=== PATIENT | female | born 2000 | race Caucasian/White ===

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

== ENCOUNTER → 2019-01-17 | Outpatient (CLI) | payer OTHER, MEDICAID ==
[~2019-01-17] MED LIST changes: +ALLE180T33 PO; +AMIT25TA PO; +CELE20TA PO; +EPIN0.3I11; -EPIN0.3I6; +FEXO180T58; +GABA-843 PO; +MAXA10TA14 PO; -METHACHOLINE KIT (J7674) INH ONE; +PANT40TA3 PO; +RANI-280; +SING10TA32 PO; +SUCR1SUS PO; +SUCR1TAB56; +TOPA100T12 PO; +TRINTAB PO; +ZYRT10CA5 PO; +[UNRECOGNIZED DRUG - CODE] PO
--- NOTE | 2019-01-17 11:25 | REP ---
COMPLETE ABDOMINAL SONOGRAPHY: HISTORY: Left upper quadrant pain. Evaluate for subcutaneous nodules or hernia in the left upper quadrant. Evaluate gallbladder. FINDINGS: Scanning through the right upper quadrant of the abdomen demonstrates a normal sized thin-walled gallbladder without evidence of stone or polyp. Common bile duct is normal measuring 0.4 cm in greatest diameter. There is poor insonation and increased echogenicity in the liver parenchyma consistent with fatty infiltration of the liver. No focal liver lesion is seen. The liver measures 16.5 cm in the mid clavicular craniocaudal span which is the upper range of normal. Limited views of the pancreas show no abnormality. A normal caliber aorta is seen. Scanning of the left upper quadrant demonstrates a somewhat prominent spleen at the upper range of normal in size measuring 12.9 cm in greatest dimension. No focal splenic lesion is seen. Scanning in the left upper quadrant intra-abdominal wall region where the patient relates some tenderness shows no abnormality. No hernia soft tissue mass or cyst is seen. Renal cortical echogenicity pattern is normal and renal contours are smooth bilaterally. The right kidney measures 10.7 x 5.9 x 4.2 cm. Left renal dimensions are 13.4 x 6.8 x 5.2 cm. IMPRESSION: Fatty infiltration of the liver. Borderline liver and spleen size. No other abnormality. Electronically Signed by Nato Whittington MD 01/17/2019 04:00 P
== END ==
LOC: M RAD 08:07
PROVIDERS: ATTEND Internal Medicine Gastroenterology
DX: R10.12 Left upper quadrant pain (principal); K76.0 Fatty (change of) liver, not elsewhere classified

== ENCOUNTER 2019-04-16 20:58 | Emergency (ER) | payer OTHER, MEDICAID ==
[~2019-04-16] VITALS: Ht 167.6 cm; Wt 122.7 kg
[2019-04-16 20:58] VITALS: BP 131/94
== END 2019-04-16 21:40 | disposition left against medical advice (07) ==
LOC: M ED 20:58
DX: Z53.29 Procedure and treatment not carried out because of patient's decision for other reasons (principal)

== ENCOUNTER → 2019-06-22 | Outpatient (REF) | payer OTHER, MEDICAID ==
[2019-06-22 16:04] LABS: FOLLICLE STIMULATING HORMONE 9.5 mIU/mL; LUTEINIZING HORMONE 5.5 mIU/mL; PROLACTIN 7.7 NG/ML
[2019-06-22 16:09] LABS: HCG, SERUM QUALITATIVE NEGATIVE (NEGATIVE)
[2019-06-28 08:06] LABS: 17 HYDROXY PROGESTERONE 27 ng/dL (.); TESTOSTERONE FREE (DIRECT) 0.5 pg/mL (Not Estab.)
== END ==
LOC: M SFHCWAGY 13:30
PROVIDERS: ATTEND Family Medicine
DX: N92.6 Irregular menstruation, unspecified (principal)
CPT/HCPCS: 36415; 83001; 83002; 83498; 84146; 84402; 84403; 84443; 84703; G0463

== ENCOUNTER → 2019-07-09 | Outpatient (CLI) | payer OTHER, MEDICAID ==
[~2019-07-09] MED LIST changes: +SUCR1ORA PO; -SUCR1SUS PO
--- NOTE | 2019-07-10 05:29 | REP ---
Clinical: Pelvic pain and irregular menstrual cycles . Technique: Transabdominal pelvic ultrasound. Findings: Bladder is unremarkable and measures 16.4 x 10.2 x 9.0 cm . Normal anteverted/ right deviated uterus measures 7.8 x 3.2 x 4.7 cm . The endometrial complex measures 3.4 mm thickness. No discrete uterine or endometrial abnormalities are appreciated. Bilateral ovaries are normal in appearance. Right ovary measures 3.4 x 1.7 x 3.1 cm ; Left ovary measures 2.5 x 1.0 x 2.1 cm. No pelvic fluid or adnexal mass lesion . Impression: 1. normal transabdominal pelvic ultrasound.
== END ==
LOC: M WHC 09:04
PROVIDERS: ATTEND Family Medicine
DX: N92.6 Irregular menstruation, unspecified (principal)

== ENCOUNTER → 2019-09-28 | Outpatient (CLI) | payer OTHER, MEDICAID ==
[~2019-09-28] MED LIST changes: -SUCR1ORA PO; +SUCR1SUS PO
[2019-09-28 17:18] LABS: BASO % 0.6 % (0.0-1.0); EOS # 0.2 10^3/uL (0.0-0.5); EOS % 2.4 % (0.0-3.0); HEMATOCRIT 37.8 % (36.0-47.0); HEMOGLOBIN 12.5 g/dl (12.0-15.5); LYMPH # 2.5 10^3/uL (1.5-5.0); LYMPH % 37.8 % (24.0-44.0); MEAN CORPUSCULAR HGB CONC 33.1 g/dl (32.0-36.5); MEAN CORPUSCULAR VOLUME 84.6 fl (80.0-96.0); MONO # 0.3 10^3/uL (0.0-0.8); MONO % 5.2 % (0.0-5.0); NEUTROPHILS # 3.6 10^3/uL (1.5-8.5); NEUTROPHILS % 53.8 % (36.0-66.0); PLATELET COUNT, AUTOMATED 311 10^3/uL (150-450); RED BLOOD COUNT 4.47 10^6/uL (4.00-5.40); WHITE BLOOD COUNT 6.6 10^3/uL (4.0-10.0)
[2019-09-28 17:42] LABS: ALBUMIN 3.8 GM/DL (3.2-5.2); ALT/SGPT 87 U/L (12-78); BILIRUBIN,TOTAL 0.2 MG/DL (0.2-1.0); BLOOD UREA NITROGEN 9 MG/DL (7-18); CALCIUM LEVEL 9.1 MG/DL (8.5-10.1); CARBON DIOXIDE LEVEL 21 MEQ/L (21-32); CHLORIDE LEVEL 110 MEQ/L (98-107); CREATININE FOR GFR 0.89 MG/DL (0.55-1.30); GLUCOSE, FASTING 103 MG/DL (70-100); POTASSIUM SERUM 3.8 MEQ/L (3.5-5.1); RHEUMATOID FACTOR QUANT < 10.0 IU/ML (<15.0); SODIUM LEVEL 141 MEQ/L (136-145); TOTAL PROTEIN 6.9 GM/DL (6.4-8.2)
[2019-09-28 17:51] LABS: FOLATE 6.6 NG/ML; TOTAL 25(OH) VITAMIN D 24.1 NG/ML (30.0-100.0); VITAMIN B12 LEVEL 408 PG/ML
[2019-09-28 18:21] LABS: ERYTHROCYTE SEDIMENTATION RATE 33 mm/hr (0-20)
[2019-10-02 00:06] LABS: ANTINUCLEAR ANTIBODIES DIRECT Negative (Negative); TOPIRAMATE LEVEL 6.3 ug/mL (2.0-25.0)
== END ==
LOC: M LAB 15:57
PROVIDERS: ATTEND Psychiatry & Neurology Neurology
DX: R51 Headache (principal)

== ENCOUNTER → 2019-10-30 | Outpatient (REF) | payer OTHER, MEDICAID | LOC: M LAB REF 15:25 | PROVIDERS: ATTEND Internal Medicine Gastroenterology | DX: R10.12 Left upper quadrant pain (principal); R19.7 Diarrhea, unspecified ==

== ENCOUNTER → 2020-05-19 | Outpatient (CLI) | payer OTHER, MEDICAID ==
[~2020-05-19] MED LIST changes: -MONT10TA2; +MONT10TA4; +PANT40TA29 PO; -PANT40TA3 PO; +SUCR1ORA PO; -SUCR1SUS PO
--- NOTE | 2020-07-11 11:54 | REP ---
ULTRASOUND OF THE LUMBAR SOFT TISSUES: FINDINGS: Real time sonographic evaluation of the lumbar soft tissues is performed with special attention paid to the right side at the site of a palpable lump. There is no sonographic evidence of cystic or solid mass. Further evaluation may be made with MRI. Please note that the study was performed on 05/19/20 and interpretation of the study is delayed due to computer malfunction. SHYAM
== END ==
LOC: M RAD 07:45
PROVIDERS: ATTEND Family Medicine
DX: R22.2 Localized swelling, mass and lump, trunk (principal)

== ENCOUNTER 2020-11-24 20:09 | Emergency (ER) | payer OTHER, MEDICAID ==
[~2020-11-24] VITALS: Ht 165.1 cm; Wt 123.4 kg
[~2020-11-24 20:09] MED LIST changes: -AMIT25TA PO; +AMIT25TA17 PO; +GABA-282 PO; -GABA-843 PO; -MONT10TA4; +MONT5TAB2
--- OUTSIDE RECORDS SUMMARY | 2020-11-24 20:20 | CCD ---
Author Author [facility] Organization [facility] Address Unknown Phone Unavailable Care Team Providers Care Bridge Welder Name Role Phone Fifi Fischer Unavailable PROBLEMS Type Condition ICD9-CM Code QOU82-XY Code Onset Dates Condition S tatus SNOMED Code Notes Problem GERD with esophagitis K21.0 Active 434832245 Problem Fibromyalgia M79.7 Active 601146106 Problem Seasonal allergies J30.2 Active 925805216 Problem Irregular periods N92.6 Active 41718388 Problem Intractable migraine without aura and without st atus migrainosus G43.019 Active 952411426 Problem Morbid (severe) obesity due to excess calories E66 .01 Active 76080598485909 Problem Body mass index (BMI) of 40.0-44.9 in adult Z68.41 Active 276122062 Problem Generalized anxiety disorder F41.1 Active 218 54476 Problem Major depressive disorder, r ecurrent episode, moderate with anxious distress F33.1 Active 286647770 ALLERGIES Allergen (clinical drug ingredient) Drug/Non Drug Allergy do cumented on EMR Reaction Allergy Type Onset Date Status propranolol Propranolol HCl(ND Code:[address]-36) exacerba lucho asthma Drug Allergy Active nortriptyline Nortriptyline HCl(ND Code:[address]-32) tremors Dr yara Allergy Active environmental nasal congestion, itchy eyes Non Drug Allerg y Active ENCOUNTERS from 1999 to 2020-10-15 Encounter Location Date Provider Diagnosis [address] [address] Sep, Fifi Fischer Annual physical exam Z00.00 ; Morbid (se jose) obesity due to excess calories E66.01 ; Body mass index (BMI) of 40.0-44.9 in adult Z68.41 ; Intractable migraine without aura and without status migrainosus G43.019 ; Major depressive disorder, recurrent episode, moderate with anxious distress F33.1 ; Generalized anxiety disorder F41.1 ; Seasonal allergies J30.2 ; Encounter for immunization Z23 ; Fibromyalgia M79.7 ; GERD with esophagitis K21.0 and Irregular periods N92.6 IMMUNIZATIONS Vaccine Route Administration Date Status Influenza (18 yrs & older) Flublok IM Intramuscular Oct 14, 2020 Administered SOCIAL HISTORY Tobacco Use: Social History Observation Description Date Details (start date - stop date) Never Smoker Sex Assigned At : Social History Observation Description Sex Assigned At Unknown Education: Question Answer Notes Level of Education: Not finished High School 11th grade Audit Question Answer Notes Total Score: 0 Interpretation: Alcohol Education Language: Question Answer Notes Languages spoken: Citizen Of [place] Mormon: Question Answer Notes Mormon 33 None Domestic Violence: Question Answer Notes Status: Single Sexual Hx: Question Answer Notes Had sex in the last 12 months (vaginal, oral, or anal)? No LMP: 12/27/2018 Have you ever had an STD? No Drug and Alcohol Question Answer Notes Total Score: 0 Interpretation: No problems reported Alcohol Screening: Question Answer Notes Did you have a drink containing alcohol in the past year? No Points 0 Interpretation Negative BMI Care Goal Follow-Up Question Answer Notes Above Normal BMI Follow-Up Lifestyle education regarding t Tobacco Use: Question Answer Notes Are you a: never smoker never smoker REASON FOR REFERRAL No Information VITAL SIGNS Weight 273 lbs Sep, Height 67 in Sep, BMI 42.75 kg/m2 Sep, Heart Rate 89 /min Sep, Respiratory Rate 18 /min Sep, Temperature 98 degrees Fahrenheit Sep, Oximetry 98 Sep, Blood pressure systolic 120 mm Hg Sep, Blood pressure diastolic 74 mm Hg Sep, MEDICATIONS Medication SIG (Take, Route, Frequency, Duration) Notes Start Da te End Date Status Citalopram Hydrobromide 10 MG 1 tablet Orally Once a day for 30 day(s ) Active Maxalt 5 MG 1 tablet as needed one time Orally Once a day Not-Taking Topamax 100 MG 1 tablet Orally Twice a day Active Singulair 10 MG 1 tablet in the evening Orally Once a day Active Pantoprazole Sodium 40 MG 1 tablet Orally as needed Not-Taking Rizatriptan Benzoate 10 MG 1 tablet Orally Once a day Active ProAir HFA 108 (90 Base) mcg/act 2 puffs as needed Inh alation qid prn for 30 Days Active Vitamin D (Ergocalciferol) 23877 UNIT TAKE ONE CAPSULE BY MOUTH TWICE A MONTH Oral Active Fexofenadine HCl 180 MG TAKE TWO TABLETS BY MOUTH EVERY DAY Oral Active Ibuprofen 800 MG 1 tablet with food or milk as needed Orally as neede d Active PROCEDURES from 1999 to 2020-10-15 Procedure Date Ordered Result Body Site Immunization: Flublok Quadrivalent (18 years & older) 0.5mL IM (Influenza) 2020-10-14 N/A RESULTS No Results REASON FOR VISIT Annual MEDICAL (GENERAL) HISTORY Type Description Date Medical History GERD with esophagitis - Dr. Dina Maher Medical History Migraine without aura - Dr. Benton Medical History Depression and anxiety - [facility] Medical History Fibromyalgia Medical History Seasonal allergies and dermatographia - Dr. Yogesh Emery Medical History Asthma as a child - outgrew this / ?[facility] due to cold Surgical History EGD - Grade C esophagitis, Dr. Gold 07/2018 Surgical History EGD - Grade A esophagitis, Dr. Gold 10/2018 Surgical History Colonoscopy - normal, Dr. Dina Maher 2019 Hospitalization History RSV,pneumonia Goals Section No Information Health Concerns No Information MEDICAL EQUIPMENT No Information MENTAL STATUS No Information FUNCTIONAL STATUS No Information ASSESSMENTS Encounter Date Diagnosis Assessment Notes Treatment Notes Treatm ent Clinical Notes Sep, Annual physical exam (ICD-10 - Z00.00) Medical, surgical, and family histories were reviewed and updated. See preventative section. States she sees a Flag Maker - doesn't remember her name; I encouraged her to call to schedule her first pap. Sep, Morbid (severe) obesity due to excess calories ( ICD-10 - E66.01) The [place] [employer] recommends exercise for overall cardiovascular health. Recommendation is for at least 30 minutes of moderate-intensity aerobic activity at least 5 days per week for a total of 150 minutes, or at least 25 minutes of vigorous aerobic activity at least 3 days per week for a total of 75 minutes; or a combination of moderate- and vigorous-intensity aerobic activity AND moderate- to high-intensity muscle-strengthening activity at least 2 days per week for additional health benefits. Physical activity is anything that makes you move your body and burn calories. This includes things like walking, climbing stairs, or playing sports. Aerobic exercises benefit your heart, and include walking, jogging, swimming or biking. Strength and stretching exercises are best for overall stamina and flexibility. , . I encouraged healthy diet and regular exercise for weight loss. Sep, Body mass index (BMI) of 40.0-44.9 in adult (ICD -10 - Z68.41) Sep, Intractable migraine without aura and without status migrainosus (ICD-10 - G43.019) Follows with Neurology. Sep, Major depressive disorder, r ecurrent episode, moderate with anxious distress (ICD-10 - F33.1) States she is having family problems at home; I encouraged her to re-establish with her therapist. Sep, Generalized anxiety disorder (ICD-10 - F41.1) See above. Sep, Seasonal allergies (ICD-10 - J30.2) Follows with an machine rough rounder; feels her symptoms are well controlled at present. Sep, Encounter for immunization (ICD-10 - Z23) Sep, Fibromyalgia (ICD-10 - M79.7) Symptoms are stable. Sep, GERD with esophagitis (ICD-10 - K21.0) No longer taking PPI; admits to some reflux and LUQ pain. I encouraged her to call her GI doctor (Dr. Dina Maher) to schedule an appointment or a telemedicine visit to discuss these problems. Sep, Irregular periods (ICD-10 - N92.6) States periods are becoming more regular recently PLAN OF TREATMENT Treatment Notes Assessment Notes Clinical Notes Annual physical exam Medical, surgical, and family histories were reviewed and updated. See preventative section.States she sees a Flag Maker - doesn't remember her name; I encouraged her to call to schedule her first pap. Morbid (severe) obesity due to excess calories The [place] [employer] recommends exercise for overall cardiovascular health. Recommendation is for at least 30 minutes of moderate-intensity aerobic activity at least 5 days per week for a total of 150 minutes, or at least 25 minutes of vigorous aerobic activity at least 3 days per week for a total of 75 minutes; or a combination of moderate- and vigorous-intensity aerobic activity AND moderate- to high- intensity muscle-strengthening activity at least 2 days per week for additional health benefits. Physical activity is anything that makes you move your body and burn calories. This includes things like walking, climbing stairs, or playing sports. Aerobic exercises benefit your heart, and include walking, jogging, swimming or biking. Strength and stretching exercises are best for overall stamina and flexibility. , . I encouraged healthy diet and regular ex ercise for weight loss. Intractable migraine without aura and without status migrain osus Follows with Neurology. Major depressive disorder, recurrent episode, moderate with anxious distress States she is having family problems at home; I encouraged her to re-establish with her therapist. Generalized anxiety disorder See above. Seasonal allergies Follows with an jensen rgist; feels her symptoms are well controlled at present. Fibromyalgia Symptoms are stable. GERD with esophagitis No longer taking P PI; admits to some reflux and LUQ pain. I encouraged her to call her GI doctor (Dr. Dina Maher) to schedule an appointment or a telemedicine visit to discuss these problems. Irregular periods States periods are b ecoming more regular recently Next Appt Details 1 year; 30 min Reason:Annual Follow Up:1 year; 30 minAnnual Insurance Providers Payer Name Payer Address Payer Phone Insured Name Patient Relati onship to Insured Coverage Start Date Coverage End Date MEDICAID [employer] [address] [facility] [address] A[address] [facility] [address] [facility] [address] DEJAH SANTOYO
--- OUTSIDE RECORDS SUMMARY | 2020-11-24 20:20 | CCD ---
Continuity of Care Document (CCD) Created on: 11/10/2020 Erika Rizzo External Reference #: [id number] : 2000 Sex: Female Author Author Erika BENTON M.D. Organization Unknown Address [address] [place] [address] Phone [phone] Care Team Providers Care Engine Repair Supervisor Name Role Phone Fifi Fischer MD AUTM [phone] Problems Active Problems Provider Date Tension-type headache Mitchel Benton M.D. Onset: 11/06/2014 Migraine without aura Mitchel Benton M.D. Onset: 11/06/2014 Migraine without aura, not refractory Mitchel Benton M.D. On set: 08/06/2015 Chronic tension-type headache Mitchel Benton M.D. Onset: Disorders of initiating and maintaining sleep Stacey Sarabia Onset: 08/06/2015 Refractory migraine without aura Mitchel Benton M.D. Onset: 09/26/2015 Low back pain Mitchel Benton M.D. Onset: 09/26/2015 Idiopathic progressive polyneuropathy Mitchel Benton M.D. On set: 09/26/2015 Spondylolysis Mitchel Benton M.D. Onset: 09/26/2015 Concussion with no loss of consciousness Mitchel Benton M.D. Onset: 09/02/2016 Social History Type Date Description Comments Sex Unknown ETOH Use Denies alcohol use Tobacco Use Start: Unknown Patient has never smoked Recreational Drug Use Never Used Drugs Allergies, Adverse Reactions, Alerts Active Allergies Reaction Severity Comments Date Seasonal 11/06/2014 Nortriptyline tremor 03/01/2017 Propranolol aggravated asthma 03/01/2017 Inactive Allergies NKDA 11/06/2014 Medications Active Medications SIG Qnty Indications Ordering Provide r Date Citalopram Hydrobromide 10mg Table ts take one tablet by mouth once daily at bedtime 90tabs Mitchel Benton M.D. 02/19/2020 Rizatriptan Benzoate 10mg Tablets take 1 tablet by mouth two times a day as needed for migraines maximum daily dose = 2 tablets 9tabs Mitchel Benton M.D. 08/17/2019 Ibuprofen 800mg Tablets 1 by mouth twice a day as needed for headaches 30tabs Mitchel Benton M.D. Vitamin D (Ergocalciferol) 58730Rivn Capsules Take One Capsule By Mouth Twice A Month 6caps Irwin Benton M.D. 03/05/2019 Topiramate 100mg Tablets take 1 tablet by mouth twice a day maximum daily dose = 2 180tabs Mitchel Benton M.D. 09/02/2016 Immunizations Description No Information Available Vital Signs Date Vital Result Comment 08/06/2015 10:59am BP Systolic 125 mmHg BP Diastolic 70 mmHg Heart Rate 76 /min Respiratory Rate 16 /min 06/06/2015 10:59am BP Systolic 100 mmHg BP Diastolic 70 mmHg Heart Rate 80 /min Respiratory Rate 16 /min Height 65 inches 5'5" Height Percentile 67 % Weight 190.00 lb Weight Percentile >97th BMI (Body Mass Index) 31.6 kg/m2 Results Description No Information Available Procedures Description No Information Available Medical Devices Description No Information Available Encounters Type Date Location Provider Dx Diagnosis Office Visit 11/07/2020 10:15a Main office - [place] Stacey Sarabia G43.009 Migraine w/o aura, not intractable, w/o status migrainosus G44.229 Chronic tension-type headach e, not intractable M54.5 Low back pain M43.06 Spondylolysis, lumbar region Assessments Date Code Description Provider 11/07/2020 G43.009 Migraine without aura, not intra ctable, without status migra Mitchel Benton M.D. 11/07/2020 G44.229 Chronic tension-type headache, n ot intractable Mitchel Benton M.D. 11/07/2020 M54.5 Low back pain Mitchel Benton M.D. 11/07/2020 M43.06 Spondylolysis, lumbar region Yordan Benton M.D. Plan of Treatment No Information Available Functional Status Description No Information Available Mental Status Description No Information Available Referrals Refer to Reason for Referral Status Appt Date Mitchel Benton M.D. Created [facility] [address] [place] [address] [phone]
--- OUTSIDE RECORDS SUMMARY | 2020-11-24 20:20 | CCD ---
Author Author [facility] Organization [facility] Address Unknown Phone Unavailable Care Team Providers Care Hired Help Name Role Phone Fifi Fischer Unavailable PROBLEMS Type Condition ICD9-CM Code [id number] Code Onset Dates Condition S tatus SNOMED Code Notes Problem GERD with esophagitis K21.0 Active 072568407 Problem Morbid (severe) obesity due to excess calories E66 .01 Active 39311049955533 Problem Body mass index (BMI) of 40.0-44.9 in adult Z68.41 Active 373088552 Problem Intractable migraine without aura and without st atus migrainosus G43.019 Active 332456540 Problem Seasonal allergies J30.2 Active 069609206 Problem Anovulation N97.0 Active 94810681 Problem Fibromyalgia M79.7 Active 386019176 Problem Major depressive disorder, r ecurrent episode, moderate with anxious distress F33.1 Active 194759459 Problem Generalized anxiety disorder F41.1 Active 218 74429 Problem Irregular periods N92.6 Active 30332584 Problem DUB (dysfunctional uterine bleeding) N93.8 Act deepak 06745079 ALLERGIES Allergen (clinical drug ingredient) Drug/Non Drug Allergy do cumented on EMR Reaction Allergy Type Onset Date Status propranolol Propranolol HCl(ND Code:[address]-91) exacerba lucho asthma Drug Allergy Active nortriptyline Nortriptyline HCl(NDC Code:[address]-19) tremors Dr yara Allergy Active environmental nasal congestion, itchy eyes Non Drug Allerg y Active ENCOUNTERS from 1999 to 2020-08-25 Encounter Location Date Provider Diagnosis [facility] [place] [address] Aug, Fifi Fischer Intractable migraine without aura and wi thout status migrainosus G43.019 IMMUNIZATIONS No Information SOCIAL HISTORY Tobacco Use: Social History Observation Description Date Details (start date - stop date) Never Smoker Sex Assigned At : Social History Observation Description Sex Assigned At Unknown Education: Question Answer Notes Level of Education: Not finished High School 11th grade Audit Question Answer Notes Total Score: 0 Interpretation: Alcohol Education Language: Question Answer Notes Languages spoken: Vietnamese Sikh: Question Answer Notes Sikh 33 None Domestic Violence: Question Answer Notes [...] REASON FOR REFERRAL No Information VITAL SIGNS No information MEDICATIONS Medication SIG (Take, Route, Frequency, Duration) Start Date En d Date Status ProAir HFA 108 (90 Base) mcg/act 2 puffs as needed Inh alation qid prn for 30 Days Active Maxalt 5 MG 1 tablet as needed one time Orally Once a day Active Vitamin D (Ergocalciferol) 30021 UNIT TAKE ONE CAPSULE BY MOUTH TWICE A MONTH Oral Active Topamax 100 MG 1 tablet Orally Twice a day Active Singulair 10 MG 1 tablet in the evening Orally Once a day Active Pantoprazole Sodium 40 MG 1 tablet Orally as needed Active Ibuprofen 800 MG 1 tablet with food or milk as needed Orally as nee ded Active Fexofenadine HCl 180 MG TAKE TWO TABLETS BY MOUTH EVERY DAY Oral Active PROCEDURES No Information RESULTS No Results REASON FOR VISIT referrals MEDICAL (GENERAL) HISTORY Type Description Date Medical History GERD with esophagitis Medical History Migraine without aura - Dr. Benton Medical History Depression and anxiety - Z[facility] Pinzon [facility] Medical History Fibromyalgia Medical History Seasonal allergies and dermatographia - Dr. Yogesh Emery Medical History Asthma as a child - outgrew this / ?[facility] due to cold Surgical History EGD - Grade C esophagitis, Dr. Gold 07/2018 Surgical History EGD - Grade A esophagitis, Dr. Gold 10/2018 Surgical History Colonoscopy - normal, Dr. Dina Maher 2019 Hospitalization History RSV,pneumonia infant Goals Section No Information Health Concerns No Information MEDICAL EQUIPMENT No Information MENTAL STATUS No Information FUNCTIONAL STATUS No Information ASSESSMENTS Encounter Date Diagnosis Notes Aug, Intractable migraine without aura and without status migrainosus (ICD-10 - G43.019) PLAN OF TREATMENT Next Appt Details Provider Name:Fifi Fischer, 2020-10-14 01:00:00 PM, [address] [place], [address], Insurance Providers Payer Name Payer Address Payer Phone Insured Name Patient Relati onship to Insured Coverage Start Date Coverage End Date MEDICAID [employer] [address] [facility] [address] [address] [facility] [address] [facility] [id number] DEJAH SANTOYO
--- OUTSIDE RECORDS SUMMARY | 2020-11-24 20:20 | CCD | Continuity of Care Document ---
Author Author Erika BENTON M.D. Organization Unknown Address [address] [place] [address] Phone [phone] Care Team Providers Care Scraper Meat Name Role Phone Fifi Fischer MD AUTM [phone] Problems Active Problems Provider Date Tension-type headache [...] 30tabs Mitchel Benton M.D. Vitamin D (Ergocalciferol) 81722Ihew Capsules Take One Capsule By Mouth Twice [...] Office Visit 11/07/2020 10:15a Main office - [place] Stacey Sarabia G43.009 Migraine w/o aura, not [...] Mental Status Description No Information Available Referrals Description No Information Available
--- OUTSIDE RECORDS SUMMARY | 2020-11-24 20:21 | CCD ---
Author Author [facility] Address Unknown Phone Unavailable Care Team Providers Care Supervisor Ship Maintenance Services Name Role Phone [facility] Unavailable Unavailable Mitchel Benton MD Unavailable Unavailable Mitchel Benton MD Unavailable Unavailable Mitchel Benton MD Unavailable Unavailable Mitchel Benton MD Unavailable Unavailable Mitchel Benton MD Unavailable Unavailable Mitchel Benton MD Unavailable Unavailable Mitchel Benton MD Unavailable Unavailable Mitchel Benton MD Unavailable Unavailable Mitchel Benton MD Unavailable Unavailable Mitchel Benton MD Unavailable Unavailable Mitchel Benton MD Unavailable Unavailable Mitchel Benton MD Unavailable Unavailable Mitchel Benton MD Unavailable Unavailable Mitchel Benton MD Unavailable Unavailable Mitchel Benton MD Unavailable Unavailable Mitchel Benton MD Unavailable Unavailable Mitchel Benton MD Unavailable Unavailable Mitchel Benton MD Unavailable Unavailable Mitchel Benton MD Unavailable Unavailable Ali, Mitchel MD Unavailable Unavailable Ali, Mitchel MD Unavailable Unavailable Ali, Mitchel MD Unavailable Unavailable Ali, Mitchel MD Unavailable Unavailable Ali, Mitchel MD Unavailable Unavailable Ali, Mitchel MD Unavailable Unavailable Ali, Mitchel MD Unavailable Unavailable Ali, Mitchel MD Unavailable Unavailable Ali, Mitchel MD Unavailable Unavailable Ali, Mitchel MD Unavailable Unavailable Ali, Mitchel MD Unavailable Unavailable Ali, Mitchel MD Unavailable Unavailable Ali, Mitchel MD Unavailable Unavailable Ali, Mitchel MD Unavailable Unavailable Ali, Mitchel MD Unavailable Unavailable Ali, Mitchel MD Unavailable Unavailable Ali, Mitchel MD Unavailable Unavailable Ali, Mitchel MD Unavailable Unavailable Ali, Mitchel MD Unavailable Unavailable Ali, Mitchel MD Unavailable Unavailable Ali, Mitchel MD Unavailable Unavailable Ali, Mitchel MD Unavailable Unavailable Ali, Mitchel MD Unavailable Unavailable Ali, Mitchel MD Unavailable Unavailable Ali, Mitchel MD Unavailable Unavailable Ali, Mitchel MD Unavailable Unavailable Ali, Mitchel MD Unavailable Unavailable Ali, Mitchel MD Unavailable Unavailable Ali, Mitchel MD Unavailable Unavailable Ali, Mitchel MD Unavailable Unavailable Re-disclosure Warning The records that you are about to access may contain information from federally-assisted alcohol or drug abuse programs. If such information is present, then the following federally mandated warning applies: This information has been disclosed to you from records protected by federal confidentiality rules (42 CFR part 2). The federal rules prohibit you from making any further disclosure of this information unless further disclosure is expressly permitted by the written consent of the person to whom it pertains or as otherwise permitted by 42 CFR part 2. A general authorization for the release of medical or other information is NOT sufficient for this purpose. The Federal rules restrict any use of the information to criminally investigate or prosecute any alcohol or drug abuse patient.The records that you are about to access may contain highly sensitive health information, the redisclosure of which is protected by Article 27-F of the [facility] Public Health law. If you continue you may have access to information: Regarding HIV / AIDS; Provided by facilities licensed or operated by the [facility] Office of Mental Health; or Provided by the [facility] Office for People With Developmental Disabilities. If such information is present, then the following [facility] mandated warning applies: This information has been disclosed to you from confidential records which are protected by state law. State law prohibits you from making any further disclosure of this information without the specific written consent of the person to whom it pertains, or as otherwise permitted by law. Any unauthorized further disclosure in violation of state law may result in a fine or nursing home sentence or both. A general authorization for the release of medical or other information is NOT sufficient authorization for further disc losure. Allergies and Adverse Reactions Type Description Substance Reaction Status Data Source(s ) Drug allergy Nortriptyline HCl Nortriptyline tremors Active eC W1 ([facility]) Drug allergy Propranolol HCl Propranolol exacerbated asthma Active eCW1 ([facility]) environmental environmental environmental nasal congestion, itchy ey es Active eCW1 ([facility]) Family History Family Member Name Family Member Gender Family Member Status Date o f Status Description Data Source(s) Unknown Unknown Problem MEDENT ([facility]) father Encounters Encounter Providers Location Date Indications Data Source(s ) Outpatient Attender: Mitchel Benton MD Main office - [place] 11/07/2020 09:15:00 AM EST MEDENT ([facility]) Outpatient [address] [facility] [address] 10/14/2020 12:00:00 AM EST eCW1 ([facility]) Unknown [address] [facility] [place] [address] 08/24/2020 12:00:00 AM EDT eCW1 ([facility]) Outpatient Attender: [facility] 08/23/2020 12:02:01 AM EDT [facility] Outpatient Attender: [facility] 08/22/2020 10:58:02 AM EDT [facility] Outpatient Attender: [facility] 08/22/2020 10:36:01 AM EDT [facility] Outpatient Attender: [facility] 08/22/2020 10:35:00 AM EDT [facility] Outpatient Attender: [facility] 07/12/2020 07:46:01 AM EDT [facility] Outpatient Attender: [facility] 07/11/2020 12:02:02 AM EDT [facility] Outpatient Attender: [facility] 07/10/2020 04:22:00 PM EDT [facility] Outpatient Attender: [facility] 07/10/2020 04:21:01 PM EDT [facility] Outpatient Attender: [facility] 07/10/2020 04:04:01 PM EDT [facility] Outpatient Attender: [facility] 07/10/2020 03:22:00 PM EDT [facility] Outpatient Attender: [facility] 07/10/2020 02:14:00 PM EDT [facility] Outpatient Attender: [facility] 07/10/2020 02:12:01 PM EDT [facility] [place] [address] [facility] [place] [address] 05/15/2020 12:00:00 AM EDT eCW1 ([facility]) Unknown [address] [facility] [place] [address] 05/12/2020 12:00:00 AM EDT eCW1 ([facility]) Unknown [address] [facility] [place] [address] 05/12/2020 12:00:00 AM EDT eCW1 ([facility]) [facility] [address] [place] [id number] 04/18/2020 12:00:00 AM EDT eCW1 ([facility]) Outpatient Attender: [facility] 04/17/2020 12:02:01 AM EDT [facility] Outpatient Attender: [facility] 04/01/2020 07:25:03 PM EDT [facility] Outpatient Attender: Mitchel Benton MD Main office - [place] 02/19/2020 11:15:00 AM EDT MEDENT ([facility]) [facility] [address] [facility] [place] [address] 10/12/2019 12:00:00 AM EST eCW1 ([facility]) Immunizations Vaccine Date Status Description Data Source(s) influenza, recombinant, quadrIvalent,injectable, prese rvative free 10/14/2020 02:44:00 PM EST completed eCW1 ([facility]) Medications Medication Brand Name Start Date Product Form Dose Route Admi nistrative Instructions Pharmacy Instructions Status Indications Reaction Description Data Source(s) 100 mg 11/08/2020 12:00:00 AM EST tablet 180 TAKE ONE TABLET BY MOUTH TWICE A DAY TAKE ONE TABLET BY MOUTH TWICE A DAY SOLD: 11/16/2020 [facility] 800 mg 11/08/2020 12:00:00 AM EST tablet 30 TAKE ONE TABLET BY MOUTH TWICE A DAY NEEDED FOR HEADACHE TAKE ONE TABLET BY MOUTH TWICE A DAY NEEDED FOR HEADACHE SOLD: 11/16/2020 [facility] 10 mg 11/08/2020 12:00:00 AM EST tablet 9 TAKE ONE TABLET BY MOUTH TWICE A DAY NEEDED FOR MIGRAINES MAXIMUM DAILY DOSE = 2 TABLETS TAKE ONE TABLET BY MOUTH TWICE A DAY NEEDED FOR MIGRAINES MAXIMUM DAILY DOSE = 2 TABLETS SOLD: 11/16/2020 [facility] 10 mg 11/07/2020 12:00:00 AM EST tablet 90 TAKE ONE TABLET BY MOUTH AT BEDTIME TAKE ONE TABLET BY MOUTH AT BEDTIME SOLD: 11/07/2020 [facility] 100 mg 08/16/2020 12:00:00 AM EDT tablet 180 TAKE ONE TABLET BY MOUTH TWICE A DAY TAKE ONE TABLET BY MOUTH TWICE A DAY SOLD: 08/20/2020 [facility] 10 mg 08/16/2020 12:00:00 AM EDT tablet 90 TAKE ONE TABLET BY MOUTH EVERY DAY AT BEDTIME TAKE ONE TABLET BY MOUTH EVERY DAY AT BEDTIME SOLD: 08/20/2020 [facility] montelukast 10 MG Oral Tablet MONTELUKAST SODIUM 06/04/2020 12:0 0:00 AM EDT tablet 30 TAKE ONE TABLET BY MOUTH EVERY D AY TAKE ONE TABLET BY MOUTH EVERY DAY SOLD: 06/07/2020 [facility] montelukast 10 MG Oral Tablet MONTELUKAST SODIUM 06/04/2020 12:0 0:00 AM EDT tablet 30 TAKE ONE TABLET BY MOUTH EVERY D AY TAKE ONE TABLET BY MOUTH EVERY DAY SOLD: 11/16/2020 [facility] montelukast 10 MG Oral Tablet MONTELUKAST SODIUM 06/04/2020 12:0 0:00 AM EDT tablet 30 TAKE ONE TABLET BY MOUTH EVERY D AY TAKE ONE TABLET BY MOUTH EVERY DAY SOLD: 10/18/2020 [facility] montelukast 10 MG Oral Tablet MONTELUKAST SODIUM 06/04/2020 12:0 0:00 AM EDT tablet 30 TAKE ONE TABLET BY MOUTH EVERY D AY TAKE ONE TABLET BY MOUTH EVERY DAY SOLD: 07/11/2020 [facility] montelukast 10 MG Oral Tablet MONTELUKAST SODIUM 06/04/2020 12:0 0:00 AM EDT tablet 30 TAKE ONE TABLET BY MOUTH EVERY D AY TAKE ONE TABLET BY MOUTH EVERY DAY SOLD: 09/17/2020 [facility] montelukast 10 MG Oral Tablet MONTELUKAST SODIUM 06/04/2020 12:0 0:00 AM EDT tablet 30 TAKE ONE TABLET BY MOUTH EVERY D AY TAKE ONE TABLET BY MOUTH EVERY DAY SOLD: 08/14/2020 [facility] 10 mg 02/21/2020 12:00:00 AM EDT tablet 9 TAKE 1 TAB.BY MOUTH TWICE A DAY NEEDED FOR MIGRAINES MAX DAILY DOSE = 2TABS TAKE 1 TAB.BY MOUTH TWICE A DAY NEEDED FOR MIGRAINES MAX DAILY DOSE = 2TABS SOLD: 05/19/2020 [facility] 10 mg 02/21/2020 12:00:00 AM EDT tablet 9 TAKE 1 TAB.BY MOUTH TWICE A DAY NEEDED FOR MIGRAINES MAX DAILY DOSE = 2TABS TAKE 1 TAB.BY MOUTH TWICE A DAY NEEDED FOR MIGRAINES MAX DAILY DOSE = 2TABS SOLD: 02/21/2020 [facility] 10 mg 02/21/2020 12:00:00 AM EDT tablet 9 TAKE 1 TAB.BY MOUTH TWICE A DAY NEEDED FOR MIGRAINES MAX DAILY DOSE = 2TABS TAKE 1 TAB.BY MOUTH TWICE A DAY NEEDED FOR MIGRAINES MAX DAILY DOSE = 2TABS SOLD: 03/31/2020 [facility] 800 mg 02/21/2020 12:00:00 AM EDT tablet 30 TAKE ONE TABLET BY MOUTH TWICE A DAY NEEDED FOR HEADACHES TAKE ONE TABLET BY MOUTH TWICE A DAY NEEDED FOR HEADACHES SOLD: 05/19/2020 [facility] 800 mg 02/21/2020 12:00:00 AM EDT tablet 30 TAKE ONE TABLET BY MOUTH TWICE A DAY NEEDED FOR HEADACHES TAKE ONE TABLET BY MOUTH TWICE A DAY NEEDED FOR HEADACHES SOLD: 02/21/2020 [facility] 10 mg 02/21/2020 12:00:00 AM EDT tablet 9 TAKE 1 TAB.BY MOUTH TWICE A DAY NEEDED FOR MIGRAINES MAX DAILY DOSE = 2TABS TAKE 1 TAB.BY MOUTH TWICE A DAY NEEDED FOR MIGRAINES MAX DAILY DOSE = 2TABS SOLD: 06/30/2020 [facility] 10 mg 02/20/2020 12:00:00 AM EDT tablet 90 TAKE ONE TABLET BY MOUTH ONCE DAILY AT BEDTIME TAKE ONE TABLET BY MOUTH ONCE DAILY AT BEDTIME SOLD: 0 05/19/2020 [facility] 10 mg 02/20/2020 12:00:00 AM EDT tablet 90 TAKE ONE TABLET BY MOUTH ONCE DAILY AT BEDTIME TAKE ONE TABLET BY MOUTH ONCE DAILY AT BEDTIME SOLD: 0 02/21/2020 [facility] Citalopram 10 MG Oral Tablet Citalopram Hydrobromide 02/19/2020 12:00:00 AM EDT ORAL active MEDENT ( [facility]) 100 mg 02/14/2020 12:00:00 AM EDT tablet 180 TAKE 1 TABLET BY MOUTH TWICE A DAY MAXIMUM DAILY DOSE = 2 TAKE 1 TABLET BY MOUTH TWICE A DAY MAXIM UM DAILY DOSE = 2 SOLD: 02/15/2020 [facility] 100 mg 02/14/2020 12:00:00 AM EDT tablet 180 TAKE 1 TABLET BY MOUTH TWICE A DAY MAXIMUM DAILY DOSE = 2 TAKE 1 TABLET BY MOUTH TWICE A DAY MAXIM UM DAILY DOSE = 2 SOLD: 05/19/2020 [facility] montelukast 10 MG Oral Tablet MONTELUKAST SODIUM 11/12/2019 12:0 0:00 AM EST tablet 30 TAKE ONE TABLET BY MOUTH EVERY D AY TAKE ONE TABLET BY MOUTH EVERY DAY SOLD: 01/16/2020 [facility] montelukast 10 MG Oral Tablet MONTELUKAST SODIUM 11/12/2019 12:0 0:00 AM EST tablet 30 TAKE ONE TABLET BY MOUTH EVERY D AY TAKE ONE TABLET BY MOUTH EVERY DAY SOLD: 02/15/2020 [facility] montelukast 10 MG Oral Tablet MONTELUKAST SODIUM 11/12/2019 12:0 0:00 AM EST tablet 30 TAKE ONE TABLET BY MOUTH EVERY D AY TAKE ONE TABLET BY MOUTH EVERY DAY SOLD: 03/18/2020 [facility] montelukast 10 MG Oral Tablet MONTELUKAST SODIUM 11/12/2019 12:0 0:00 AM EST tablet 30 TAKE ONE TABLET BY MOUTH EVERY D AY TAKE ONE TABLET BY MOUTH EVERY DAY SOLD: 12/17/2019 [facility] montelukast 10 MG Oral Tablet MONTELUKAST SODIUM 11/12/2019 12:0 0:00 AM EST tablet 30 TAKE ONE TABLET BY MOUTH EVERY D AY TAKE ONE TABLET BY MOUTH EVERY DAY SOLD: 11/17/2019 [facility] montelukast 10 MG Oral Tablet MONTELUKAST SODIUM 11/12/2019 12:0 0:00 AM EST tablet 30 TAKE ONE TABLET BY MOUTH EVERY D AY TAKE ONE TABLET BY MOUTH EVERY DAY SOLD: 05/09/2020 [facility] 100 mg 11/12/2019 12:00:00 AM EST tablet 180 TAKE ONE TABLET BY MOUTH TWICE A DAY MAXIMUM DAILY DOSE = 2 TAKE ONE TABLET BY MOUTH TWICE A DAY MAX IMUM DAILY DOSE = 2 SOLD: 11/17/2019 [facility] 90 mcg/actuation 10/12/2019 12:00:00 AM EST HFA aerosol inha ler 8 INHALE 2 PUFFS BY MOUTH FOUR TIMES A DAY NEEDED INHALE 2 PUFFS BY MOUTH FOUR TIMES A DAY NEEDED SOLD: 03/31/2020 [facility] 90 mcg/actuation 10/12/2019 12:00:00 AM EST HFA aerosol inha ler 8 INHALE 2 PUFFS BY MOUTH FOUR TIMES A DAY NEEDED INHALE 2 PUFFS BY MOUTH FOUR TIMES A DAY NEEDED SOLD: 10/19/2019 [facility] 0.3 mg/0.3 mL 10/11/2019 12:00:00 AM EST auto-injector 2 INJECT INTO THIGH NEEDED FOR ALLERGIC EMERGENCY INJECT INTO THIGH NEEDED FOR ALLERGIC EMERGENCY SOLD: 10/12/2019 [facility] 10 mg 08/17/2019 12:00:00 AM EDT tablet 9 TAKE 1 TABLET BY MOUTH TWO TIMES A DAY NEEDED FOR MIGRAINES MAXIMUM DAILY DOSE = 2 TABLETS TAKE 1 TABLET BY MOUTH TWO TIMES A DAY NEEDED FOR MIGRAINES MAXIMUM DAILY DOSE = 2 TABLETS SOLD: 09/25/2019 [facility] 10 mg 08/17/2019 12:00:00 AM EDT tablet 9 TAKE 1 TABLET BY MOUTH TWO TIMES A DAY NEEDED FOR MIGRAINES MAXIMUM DAILY DOSE = 2 TABLETS TAKE 1 TABLET BY MOUTH TWO TIMES A DAY NEEDED FOR MIGRAINES MAXIMUM DAILY DOSE = 2 TABLETS SOLD: 11/17/2019 [facility] montelukast 10 MG Oral Tablet MONTELUKAST SODIUM 08/09/2019 12:0 0:00 AM EDT tablet 30 TAKE ONE TABLET BY MOUTH EVERY D AY TAKE ONE TABLET BY MOUTH EVERY DAY SOLD: 10/12/2019 [facility] Insurance Providers Payer name Policy type / Coverage type Policy ID Covered republican ID Covered republican's relationship to arango Policy Arango Plan Information [facility] P [id number] P [id number] Medicaid S [id number] S [id number] HUMANA [facility] O [id number] S [id number] MEDICAID M [id number] [place] [id number] SP [id number] [facility] HUMANA [id number] FA2 [id number] [facility] P [id number] P [id number] Medicaid S [id number] S [id number] [place] HU[place] [id number] FA2 [id number] MEDICAID [id number] Humana [id number] [id number] [facility] [id number] 0 [id number] [facility] P [id number] P [id number] ANSI-Commercial [id number] ANSI-Medicaid [id number] ANSI-Medicaid [id number] ANSI-Commercial [id number] ANSI-Medicaid [id number] ANSI-Commercial [id number] ANSI-Medicaid [id number] ANSI-Commercial [id number] ANSI-Commercial [id number] ANSI-Medicaid [id number] [place] HUMANA [id number] FA2 [id number] MEDICAID [id number] SP [id number] [facility] [id number] FA2 [id number] [place] ([facility]) Commercial [id number] Family Dependent [id number] ANSI-Medicaid [id number] ANSI-Commercial [id number] ANSI-Commercial [id number] ANSI-Medicaid [id number] ANSI-Medicaid [id number] ANSI-Commercial [id number] ANSI-Commercial [id number] ANSI-Medicaid [id number] ANSI-Medicaid [id number] ANSI-Commercial [id number] MEDICAID [id number] SP [id number] [place] (2018) Commercial [id number] Family Dependent [id number] ANSI-Medicaid [id number] ANSI-Commercial [id number] Medicaid [place] Med[place] [id number] Self DC0 [id number] [place] (2018) Health Maintenance Organization (HMO) [id number] Family Dependent [id number] Medicaid Medicaid [id number] Family Dependent DC0 5267P Medicaid Medicaid [id number] Family Dependent DC0 5267P Health Net () Commercial [id number] Family Dependent [id number] [place] (Humana) Commercial [id number] Family Dependent [id number] [place] [id number] Self DC0 [id number] [place] (2018) Health Maintenance Organization (HMO) [id number] Family Dependent [id number] [place] Med[place] [id number] Self DC0 [id number] [place] (2018) Health Maintenance Organization (HMO) [id number] Family Dependent [id number] [place] (2018) Commercial [id number] Family Dependent [id number] [place] Med[place] [id number] Self DC0 [id number] [place] (2018) Health Maintenance Organization (HMO) [id number] Family Dependent [id number] [place] Med[place] [id number] Self DC0 5267P [place] (2018) Health Maintenance Organization (HMO) [id number] Family Dependent [id number] Medicaid Medicaid [id number] Family Dependent DC0 5267P Medicaid Medicaid [id number] Family Dependent DC0 5267P Health Net () Commercial [id number] Family Dependent [id number] [place] (Humana) Commercial [id number] Family Dependent [id number] Medicaid Medicaid [id number] Family Dependent DC0 5267P Medicaid Medicaid [id number] Family Dependent DC0 5267P Health Net () Commercial [id number] Family Dependent [id number] [place] (Humana) Commercial [id number] Family Dependent [id number] Medicaid Medicaid [id number] Family Dependent DC0 5267P Medicaid Medicaid [id number] Family Dependent DC0 5267P Health Net () Commercial [id number] Family Dependent [id number] [place] (Humana) Commercial [id number] Family Dependent [id number] [place] (2018) Commercial [id number] Family Dependent [id number] Medicaid Medicaid [id number] Family Dependent DC0 5267P Medicaid Medicaid [id number] Family Dependent DC0 5267P Health Net () Commercial [id number] Family Dependent [id number] [place] (Hum[employer]) Commercial [id number] Family Dependent [id number] Medicaid Medicaid [id number] Family Dependent DC0 5267P Medicaid Medicaid [id number] Family Dependent DC0 5267P Health Net () Commercial [id number] Family Dependent [id number] [place] (Humana) Commercial [id number] Family Dependent [id number] Medicaid Medicaid [id number] Family Dependent DC0 5267P Medicaid Medicaid [id number] Family Dependent DC0 5267P Health Net () Commercial [id number] Family Dependent [id number] [place] 2017 Commercial [id number] Family Dependent [id number] Medicaid Medicaid [id number] Family Dependent DC0 5267P Medicaid Medicaid [id number] Family Dependent DC0 5267P Health Net () Commercial [id number] Family Dependent [id number] [place] 2017 Commercial [id number] Family Dependent [id number] / Commercial [id number] Family Dependent [id number] [place] [id number] Self [id number] 5267P Health Net Federal Prime Health Maintenance Organization (HMO) [id number] Family Dependent [id number] [facility] [place] [id number] FA2 [id number] [facility] [place] O [id number] C [id number] [place] [id number] Self DC0 5267P Health Net Federal Prime Health Maintenance Organization (HMO) [id number] Family Dependent [id number] / Commercial [id number] Family Dependent [id number] / Commercial [id number] Family Dependent [id number] Medicaid Medicaid [id number] Family Dependent DC0 5267P Medicaid Medicaid [id number] Family Dependent DC0 5267P Health Net () Commercial [id number] Family Dependent [id number] / Commercial [id number] Family Dependent [id number] Medicaid Medicaid [id number] Family Dependent DC0 5267P Health Net () Commercial [id number] Family Dependent [id number] Medicaid Medicaid [id number] Family Dependent DC0 5267P Health Net () Commercial [id number] Family Dependent [id number] Medicaid Medicaid [id number] Family Dependent DC0 5267P Health Net () Commercial [id number] Family Dependent [id number] Medicaid Medicaid [place] Family Dependent [place] Health Net () Commercial Prime Family Depende nt Prime MEDICAID [id number] SP [id number] MEDICAID M [id number] Self [id number] [facility] [id number] Child [id number] [facility] O [id number] P [id number] Problems, Conditions, and Diagnoses Code Display Name Description Problem Type Effective Dates Data Source(s) G43.019 [id number] Intractable migraine without aura and without status migrainosus Problem 10/13/2019 12:00:00 AM EST eCW1 ([facility]) G43.019 [id number] Intractable migraine without aura and without status migrainosus Problem 10/13/2019 12:00:00 AM EST eCW1 ([facility]) Surgeries/Procedures Procedure Description Date Indications Data Source(s) Immunization: Flublok Quadrivalent (18 years & older) 0.5mL IM (Influenza) 10/14/2020 12:00:00 AM EST eCW1 ([facility]) Results ID Date Data Source [id number] 08/22/2020 10:34:05 AM EDT [facility] Current Problems: RASH (ICD-782.1) (ICD1 0-R21)WELL CHILD EXAM (ICD-V20.2) (SSN43-L13.129)FH ANEMIA/BLOOD DISORDER/SICKLE CELL (ICD-V18.2) (ICD10- Z83.2)NEED PROPH VACC&INOCULAT AGNST OTH SPEC DISEASE (ICD-V05.8) (ICD10- Z23)WELL ADOLESCENT EXAM (ICD-V70.0) (MKY20-U39.00)DERMATITIS ECZEMA (ICD-692.9) (YGZ26-D35.9)ALLERGIC RHINITIS (ICD-477.9) (TLD62-Q62.9)ASTHMA (ICD-493.90) (YKE99-T06.909)OBESITY (5TH DIGIT) (ICD-278.00) (POU05-J60.9)Problem list reviewed during this update.Current Medications: * MAXALLE * CONTROL * EBONI * SINGULAIR * RANITIDINE * TOPAMAX Medication list reviewed during this update.Current Allergies: * SEASONAL AND PET DANDER (Moderate)Allergy list reviewed during this update. Dental Chart: Procedures:Type - CDT Code - Description B - (D2150) Amalgam, 2 surfaces, primary or permanent on Tooth # 5 on Tooth Surface DO (Performed by Dinora Murcia DDS) Chart Alert:Prophy 1 per 6 month periodchild through age 12adult +13next avail 07/23/13Exam 1 per 6 month periodnext avail 07/23/13FL2 per 6 month periodthrough age 20next avail 07/23/13BWX 4 films per 6 month periodnext avail 07/23/13Panorex 1 every 3 yearsnext avail 07/25/13Sealants every 5 yearsage 5-15#18, 19, 31 sealed 03/17/11[facility] scaling okProbing not coveredAfter perio maintenance has beenstarted all prophy's need to be billed code #[id number] - 2 times per year Chart Notes:margarita (Aug 22 2020 10:56AM): Pt was 5 minutes late. [facility] (-)per pt. Took temp@ F. Additional PPE requirements due to COVID-19 in the dental setting, N95, surgical mask, hair covering, gown CC: none. HurriCaine (Watermelon) Topical, UR infiltration 1carp. Septocaine (Articaine HCL 4%) X 1:200.000 epi. Operative: #5-DO Gluma and amalgam. Excavated with High Speed. Occlusion checked. No complications. POI. Given. Assisted by AG. Pt was cooperative. NV:Dinora Jackson DDS by margarita (08/22/2020 10:56 AM): Tooth Notes and Watches:- Tooth 13 Watch: mesial and distal Marie Angel RDH by zoe (07/10/2020 2:33 PM): Assessment & Plan Medications:MAXALLEBIRTH CONTROLALLEGRASINGULAIRRANITIDINETOPAMAXAllergies:* SEASONAL AND PET DANDER (Moderate) Name Value Range Interpretation Code Description Data Aneta rce(s) Supporting Document(s) ID Date Data Source [id number] 07/10/2020 02:23:57 PM EDT [facility] Current Problems: RASH (ICD-782.1) (ICD1 0-R21)WELL CHILD EXAM (ICD-V20.2) (ZZF20-I85.129)FH ANEMIA/BLOOD DISORDER/SICKLE CELL (ICD-V18.2) (ICD10- Z83.2)NEED PROPH VACC&INOCULAT AGNST OTH SPEC DISEASE (ICD-V05.8) (ICD10- Z23)WELL ADOLESCENT EXAM (ICD-V70.0) (TWS89-M67.00)DERMATITIS ECZEMA (ICD-692.9) (JDB40-T57.9)ALLERGIC RHINITIS (ICD-477.9) (YMY61-D92.9)ASTHMA (ICD-493.90) (RNA40-U18.909)OBESITY (5TH DIGIT) (ICD-278.00) (ZHF90-Q73.9)Problem list reviewed during this update.Current Medications: * MAXALLE * CONTROL * EBONI * SINGULAIR * RANITIDINE * TOPAMAX Medication list reviewed during this update.Current Allergies: * SEASONAL AND PET DANDER (Moderate)Allergy list reviewed during this update. Dental Chart: Procedures:Type - CDT Code - Description B - (D0120) Periodic oral evaluation - established patient (Performed by Dinora Murcia DDS) B - (D1110) Prophylaxis, adult (Performed by Marie Angel RDH) B - (D0274) Bitewings, 4 radiographic images (Performed by Marie Angel RDH) Treatments:Type - CDT Code - Description T - (D2150) Amalgam, 2 surfaces, primary or permanent on Tooth # 12 on Tooth Surface OD (Performed by Marie Angel RDH) T - (D2150) Amalgam, 2 surfaces, primary or permanent on Tooth # 5 on Tooth Surface DO (Performed by Maire Angel RDH) Existing:Type - CDT Code - Description[E] Decay On #12 Surface DO, #5 Surface DO Chart Alert:Prophy 1 per 6 month periodchild through age 12adult +13next avail 07/23/13Exam 1 per 6 month periodnext avail 07/23/13FL2 per 6 month periodthrough age 20next avail 07/23/13BWX 4 films per 6 month periodnext avail 07/23/13Panorex 1 every 3 yearsnext avail 07/25/13Sealants every 5 yearsage 5-15#18, 19, 31 sealed 03/17/11Debridement not covered under [facility] managed care scaling okProbing not coveredAfter perio maintenance has beenstarted all prophy's need to be billed code #[id number] - 2 times per year Chart Notes:zoe (Jul 10 2020 2:51PM): [facility] with patient- No changes. No problems or concerns today. Adult prophy- handscaled, lao- mint prophy paste, floss, 4 BW'sOH-Patient brushes once/day and NOT flossing regularlyLT gen marginal biofilm and marginal/introproximal calculus on LA. Marginal tissue is slighty inflamed with light bleeding on scaling. She is drinking alot of jiuce and power aid now which is causing her to have more cavities. Talked about water and sugar free options. OHI- Advise to brush 2x a day and floss everyday. Went over brushing along the gum line and flossing properly. Patient is cooperative. NV- 6 month recall/fillingMarie Lawson RDH by zoe (07/10/2020 2:51 PM): ; margarita (Jul 10 2020 3:21PM): [facility](-). CC: none. Reviewed Xrays. Exam: caries detected. OCS: WNL, IO/ EO completed, No significant hard findings upon clinical exam.Additional PPE requirements due to COVID-19 in the dental setting, N95, surgical mask, hair covering, gown and shieldPt was cooperative. OHI given Referral: N/A NV:Marie Somers RDH by margarita (07/10/2020 3:21 PM): Tooth Notes and Watches:- Tooth 13 Watch: mesial and distal Marie Angel RDH by zoe (07/10/2020 2:33 PM): Assessment & Plan Medications:MAXALLEBIRTH CONTROLALLEGRASINGULAIRRANITIDINETOPAMAXAllergies:* SEASONAL AND PET DANDER (Moderate) Name Value Range Interpretation Code Description Data Aneta rce(s) Supporting Document(s) ID Date Data Source [id number] 11/23/2019 09:00:00 AM EST [facility] Name Value Range Interpretation Code Description Data Aneta rce(s) Supporting Document(s) [facility] JZAVNj9fUdIRTqEbQNNtKtiYJOccTIxjZYRwC7A1JXreTq7BPRxdwwNfDYYbPe0+UXCbOJ0kmk9pYYGf gMy 7vXNYqOmuxU8UpRXShf08LASCwVMgLBwFsRoTfFIUyKZDaJZBfGBW7ApNbTeeqAI2oPSB9QSBiMWniCU SdMXAiAPQuHdWkJQ5iXJwzVYmeLm8HLA7oh5DyOZCvFJHxCaeMSPaqEOvxWDIcYHCyHXGqQ898orPzNh 6QzHFwDVv7ZEPoVjL1HCOeSgS7XRBrTk2gBfTee0Cb Z5PaMKi8T5dFFhncZ9QyRTonBJ3rBZK0RTNfEq7XlSejTRutANWNC0krYvAkWIPtPARLKo7+Pj4+DWVu VP9itn31EKKue4ZjEMh8G0I2pWBiK8KyX6XoAMJiyHPDn6tvCqEsGFZ8IALiKwvpGC2CIXTooGIfCIWu LCpwMW4ckfFoxNV0JA3RyJvlINWzUXKAFn8+Pi9QYX TxdzQpMlOuWZNrN74elPEjhQZkZbhoQTXTXD2+UYPhMY2rod93XUKse1DeRGe6U3rfjuc4bFGkKZP1ZF ciSjFhKTZaCB7oUY5SxCH4mSMrHN6NuMCiNP6IiLNzTT5IM5JcGKC6J8HvwRNezxBjF2YwHULlVTHvq8 WoND5WA0QIVZSlPQLpQ2IftK8rD6DvZ5ToH6Nwbqsa GPHFKo4KvNY7jHJoZMHnC8vmcEfwcCWuQGbkL8DxeOAYLDZRe28ma96thxQyDC4+h9JyJGIuXVz93hz1 ZVAcX/qrUYWDGkd7GZepQMOlTlPJbg0zS7zaKyL4WEd8JxppiSU1W0rXyHAR5//gdnx1qij6sb/eD+/z 7SRNli8+b3gv0rGh3fZz5VPYVPhaUWJKmPQNJIMR11 oziPb5SPbelWjrdIyL+UEwYXPKgTHsk4aG4P1Fd9BHtxKnBaA58+Gt6wzy2bqs3sGi2+Lm/RejFY1lr6 ZHQyfGwCDmfEv+lvP/FY32TQfzrLgdcmHDOkVEPcDBD+TxG4VSHLUbZzaADV0tHLjQHcAgv0Swk0B3ZI CPDXiFAAS+QgQiISEi/u31+fwLAPNIgy4F2ZWZU3mU [file] iG+Luis [file] qdKyi2c8d5uvXhghG7xmORBE5ulU/José/EmMMCkN6JY5c4r8QNhJSmQ3PABdanleFbcsyej1QNYjf/61 [file] G/TAMAYO+bHfXtpMKRmWn4M28fka1D0l5nn8v/0ccC11074mhcx2l/WfTmRQeZ/E62aCnx9hxfs3Txemcc5B ZSJth3lrYLIgggIP1CxCDV/fBa9sO/2aOA4mi/28Wx 0jl9NW85zpxG0xsmpoOhZelb/4a3CC7l4p5ft4i15u06qAhbQ2X2BGbo3tI0AhUK7I4h00lSGak9AoX+ E8lShPXGNGtAhfSCyEVF6jZB5e/rDCWNQUlfBKqtynMkxCRbKO9PEF2ty0MtDIAyFYVcq8PtOIx5C1fs vew0qFJyBA5+s1StYDZvNTyvXrJqGgMiSWFiVdpxXB CeVLSxfBxeTT9tNmSGpcsLTEspizGcqDWkDJ3EGI0vz3PnACRcNGNjt6RtRNg0F4QgtJAzjnMzOpojvV WQQSEbJCQcBSEqV8AsOCJ3R8bLHKt1VjgBYjAQMly7CeN8PWHuZfA6MmOXQcQ5QEC0MSrpVwL+IDw2N0 JOEDAPFpYrXVepDUW0AMI4LPIJDkI0VCncPZDPIh8t M9Zdm3UsPYCcFQGyCI2fysMjZNBvEc0HwMgyCFR5O4B7lCTuM2kASGXmNiSsJSH1WGSjEl4urIDfEO1O BsqxR4TmHDByMHSEWKFJMzc+UOXEFJOcYLDcqyHLSE93TUIjUIV6ejIR1VsTO0IyF38hhRcQARBUXa13 ALtvjsStjKRcCM9JEtTgGU2zuc2TVrS4BVJ4nQCgGy7EGAE3YLl0SShjJBBFXh== ID Date Data Source [id number] 09/28/2019 04:29:00 PM EST [facility] ([facility], ) Name Value Range Interpretation Code Description Data Aneta rce(s) Supporting Document(s) Topiramate [Mass/volume] in Serum or Plasma 6.3 ug/mL 2.0-25.0 [facility] ([facility], ) This test was developed and its performa nce characteristics determined by [facility]. It has not been cleared or approved by the Food and Drug Administration. Detection Limit = 1.0 Performed at: [facility] [address] [id number] Logistical Engineer: Dilia Fung MD, Phone: [phone] Performed at: [facility] [address] [id number] Logistical Engineer: Kamran Bryant MD, Phone: [phone] ID Date Data Source [id number] 09/28/2019 04:29:00 PM EST [facility] ([facility], ) Name Value Range Interpretation Code Description Data Aneta rce(s) Supporting Document(s) Antinuclear Antibodies Direct Laboratory test result [facility] ([facility], ) ID Date Data Source [id number] 09/28/2019 04:29:00 PM EST [facility] ([facility], ) Name Value Range Interpretation Code Description Data Aneta rce(s) Supporting Document(s) Calcidiol [Mass/volume] in Serum or Plasma 24.1 ng/mL 30.0-100.0 [facility] ([facility], ) Rheumatoid factor [Units/volume] in Serum or Plasma Laboratory test result [facility] ([facility], ) Erythrocyte sedimentation rate by 2H Westergren method 33 mm/hr 0-2 0 [facility] ([facility], ) ID Date Data Source [id number] 09/28/2019 04:29:00 PM EST [facility] ([facility], ) Name Value Range Interpretation Code Description Data Aneta rce(s) Supporting Document(s) Vitamin B12 Level 408 pg/mL [facility] VITAMIN B12 NORMAL RANGE NORMAL 247 - 911 PG/ML INDETERMINATE 211 - 246 PG/ML DEFICIENT LESS THAN 211 PG/ML Folate 6.6 ng/mL [facility] ([facility]) FOLATE NORMAL RANGE NORMAL GREATER THAN 5.4 NG/ML INDETERMINATE 3.4-5.4 NG/ML DEFICIENT LESS THAN 3.4 NG/ML ID Date Data Source [id number] 09/28/2019 04:29:00 PM EST [facility] ([facility]) Name Value Range Interpretation Code Description Data Aneta rce(s) Supporting Document(s) Blood Urea Nitrogen 9 mg/dL 7-18 [facility] ([facility]) Creatinine For GFR 0.89 mg/dL 0.55-1.30 [facility] ([facility]) Glucose, Fasting 103 mg/dL 70-100 [facility] ([facility]) Potassium Serum 3.8 meq/L 3.5-5.1 [facility] ([facility]) Chloride Level 110 meq/L 98-107 [facility] ([facility]) Sodium Level 141 meq/L 136-145 [facility] ([facility]) Carbon Dioxide Level 21 meq/L 21-32 [facility] ([facility]) Anion Gap 10 meq/L 8-16 [facility] ([facility]) Calcium Level 9.1 mg/dL 8.5-10.1 [facility] ([facility]) Ast/Sgot 35 U/L 7-37 [facility] ([facility]) Alt/SGPT 87 U/L 12-78 [facility] ([facility]) Alkaline Phosphatase 112 U/L 45-117 [facility] ([facility]) Total Protein 6.9 GM/DL 6.4-8.2 [facility] ([facility]) Albumin 3.8 GM/DL 3.2-5.2 [facility] ([facility]) Bilirubin,Total 0.2 mg/dL 0.2-1.0 [facility] ([facility]) Albumin/Globulin Ratio 1.23 1.00-1.93 [facility] ([facility]) ID Date Data Source [id number] 09/28/2019 04:29:00 PM EST [facility] ([facility]) Name Value Range Interpretation Code Description Data Aneta rce(s) Supporting Document(s) White Blood Count 6.6 10 4.0-10.0 [facility] ([facility]) Red Blood Count 4.47 10 4.00-5.40 [facility] ([facility]) Hematocrit 37.8 % 36.0-47.0 [facility] ([facility]) Hemoglobin 12.5 g/dL 12.0-15.5 [facility] ([facility]) Mean Corpuscular Volume 84.6 fl 80.0-96.0 M EDENT ([facility]) Mean Corpuscular Hemoglobin 28.0 pg 27.0-33.0 [facility] ([facility]) Platelet Count, Automated 311 10 150-450 [facility] ([facility]) Red Cell Distribution Width 12.0 % 11.5-14.5 [facility] ([facility]) Mean Corpuscular HGB Conc 33.1 g/dL 32.0-36.5 [facility] ([facility]) [place] % 5.2 % 0.0-5.0 [facility] ([facility]) Lymph % 37.8 % 24.0-44.0 [facility] ([facility]) Neutrophils % 53.8 % 36.0-66.0 [facility] Immature Granulocyte % 0.2 % 0-3.0 [facility] ([facility]) Eos % 2.4 % 0.0-3.0 [facility] ([facility]) Baso % 0.6 % 0.0-1.0 [facility] ([facility]) Nucleated Red Blood Cell % 0.0 % 0-0 MED ENT ([facility]) Neutrophils # 3.6 10 1.5-8.5 [facility] ([facility]) Eos # 0.2 10 0.0-0.5 [facility] ([facility]) Lymph # 2.5 10 1.5-5.0 [facility] ([facility]) Florence # 0.3 10 0.0-0.8 [facility] ([facility]) Baso # 0.0 10 0.0-0.2 [facility] ([facility]) Procedure Social History Code Duration Value Status Description Data Source(s ) Smoking 10/14/2020 12:00:00 AM EST Never Smoker completed Never S moker eCW1 ([facility]) Smoking 06/04/2020 12:00:00 AM EDT Patient has never smoked co mpleted Patient has never smoked [facility] ([facility]) Smoking 05/15/2020 12:00:00 AM EDT Never Smoker completed Never S moker eCW1 ([facility]) Smoking 05/15/2020 12:00:00 AM EDT Never Smoker completed Never S moker eCW1 ([facility]) Smoking 11/29/2019 12:00:00 AM EST Never Smoker completed Never S moker eCW1 ([facility]) Smoking 11/29/2019 12:00:00 AM EST Never Smoker completed Never S moker eCW1 ([facility]) Vital Signs ID Date Data Source UNK Name Value Range Interpretation Code Description Data Source(s) Diastolic blood pressure 74 mm[Hg] 74 mm[Hg] eCW1 ([facility]) Systolic blood pressure 120 mm[Hg] 120 mm[Hg] e CW1 ([facility]) Body temperature 98 [degF] 98 [degF] eCW1 ([facility]) Respiratory rate 18 /min 18 /min eCW1 ([facility]) Heart rate 89 /min 89 /min eCW1 ([facility]) Body mass index (BMI) [Ratio] 42.75 kg/m2 42.75 kg/m2 eCW1 ([facility]) Body height 67 [in_i] 67 [in_i] eCW1 ([facility]) Body weight 273 [lb_av] 273 [lb_av] eCW1 ([facility]) Body mass index (BMI) [Ratio] 42.5 kg/m2 42.5 k g/m2 [facility] ([facility]) Oxygen saturation in Arterial blood by Pulse oximetry 97 % 97 % [facility] ([facility]) Body weight 267.38 [lb_av] 267.38 [lb_av] MEDEN T ([facility]) Body height 66.5 [in_i] 66.5 [in_i] [facility] ([facility]) 5'6.50" Diastolic blood pressure 78 mm[Hg] 78 mm[Hg] [facility] ([facility]) Systolic blood pressure 126 mm[Hg] 126 mm[Hg] M EDENT ([facility]) Heart rate 75 /min 75 /min [facility] Respiratory rate 15 /min 15 /min [facility] ( [facility]) Diastolic blood pressure 72 mm[Hg] 72 mm[Hg] eCW1 ([facility]) Systolic blood pressure 130 mm[Hg] 130 mm[Hg] e CW1 ([facility]) Body temperature 96.7 [degF] 96.7 [degF] eCW1 ( [facility]) Respiratory rate 18 /min 18 /min eCW1 ([facility]) Heart rate 90 /min 90 /min eCW1 ([facility]) Body mass index (BMI) [Ratio] 41.50 kg/m2 41.50 kg/m2 W1 ([facility]) Body height 67 [in_i] 67 [in_i] eCW1 ([facility]) Body weight 265 [lb_av] 265 [lb_av] eCW1 ([facility]) Diastolic blood pressure 70 mm[Hg] 70 mm[Hg] eCW1 ([facility]) Systolic blood pressure 120 mm[Hg] 120 mm[Hg] e CW1 ([facility]) Body temperature 97.6 [degF] 97.6 [degF] eCW1 ( [facility]) Respiratory rate 18 /min 18 /min eCW1 ([facility]) Heart rate 101 /min 101 /min eCW1 ([facility]) Body mass index (BMI) [Ratio] 41.03 kg/m2 41.03 kg/m2 eCW1 ([facility]) Body height 67 [in_us] 67 [in_us] eCW1 ([facility]) Body weight Measured 262 [lb_av] 262 [lb_av] eC W1 ([facility]) Body mass index (BMI) [Ratio] 42.3 kg/m2 42.3 k g/m2 [facility] ([facility]) Oxygen saturation in Arterial blood by Pulse oximetry 98 % 98 % [facility] ([facility]) Body weight 266.00 [lb_av] 266.00 [lb_av] MEDEN T ([facility]) Body height 66.5 [in_i] 66.5 [in_i] [facility] ([facility]) 5'6.50" Diastolic blood pressure 76 mm[Hg] 76 mm[Hg] [facility] ([facility]) Systolic blood pressure 124 mm[Hg] 124 mm[Hg] M EDENT ([facility]) Heart rate 55 /min 55 /min [facility] ([facility] Respiratory rate 18 /min 18 /min [facility] ( [facility])
[2020-11-24] MEDS ORDERED: CITA10TA5 (20:25)
--- OUTSIDE RECORDS SUMMARY | 2020-11-24 21:11 | CCD ---
Author Author [facility] Organization [facility] Address Unknown Phone Unavailable Care Team Providers Care Ophthalmic Medical Technologist Name Role Phone [facility] Unavailable Unavailable Mitchel Benton MD Unavailable Unavailable [...] is protected by Article 27-F of the [facility] Public Health law. If you continue you may have access to information: Regarding HIV / AIDS; Provided by facilities licensed or operated by the [facility] Office of Mental Health; or Provided by the [facility] Office for People With Developmental Disabilities. If such information is present, then the following [facility] mandated warning applies: This information has been [...] law may result in a fine or penitentiary sentence or both. A general authorization for the release of medical or other information is NOT sufficient authorization for further disc losure. Allergies and Adverse Reactions Type Description Substance Reaction Status Data Source(s ) Drug allergy Nortriptyline HCl Nortriptyline tremors Active eC W1 ([facility]) Drug allergy Propranolol HCl Propranolol exacerbated asthma Active eCW1 ([facility]) environmental environmental environmental nasal congestion, itchy ey es Active eCW1 ([facility]) Family History Family Member Name Family Member Gender Family Member Status Date o f Status Description Data Source(s) Unknown Unknown Problem [facility] ([facility]) father Encounters Encounter Providers Location Date Indications Data Source(s ) Outpatient Attender: Mitchel Benton MD Main office - [place] 11/07/2020 09:15:00 AM EST MEDENT ([facility]) Outpatient [address] [facility] [address] 10/14/2020 12:00:00 AM EST eCW1 ([facility]) Unknown [address] [facility] [address] 08/24/2020 12:00:00 AM EDT eCW1 ([facility]) Outpatient Attender: [facility] 08/23/2020 12:02:01 AM EDT [facility] Outpatient Attender: [facility] 08/22/2020 10:58:02 AM EDT [facility] Outpatient Attender: [facility] 08/22/2020 10:36:01 AM EDT [facility] Outpatient Attender: [facility] 08/22/2020 10:35:00 AM EDT [facility] Outpatient Attender: [facility] 07/12/2020 07:46:01 AM EDT [facility] Outpatient Attender: [facility] 07/11/2020 12:02:02 AM EDT [facility] Outpatient Attender: [facility] 07/10/2020 04:22:00 PM EDT [facility] Outpatient Attender: [facility] 07/10/2020 04:21:01 PM EDT [facility] Outpatient Attender: [facility] 07/10/2020 04:04:01 PM EDT [facility] Outpatient Attender: [facility] 07/10/2020 03:22:00 PM EDT [facility] Outpatient Attender: [facility] 07/10/2020 02:14:00 PM EDT [facility] Outpatient Attender: [facility] 07/10/2020 02:12:01 PM EDT [facility] Outpatient [address] [facility] [address] [address] 05/15/2020 12:00:00 AM EDT eCW1 ([facility]) Unknown [address] [facility], [facility] [address] 05/12/2020 12:00:00 AM EDT eCW1 ([facility]) Unknown [address] [facility] [address] 05/12/2020 12:00:00 AM EDT eCW1 ([facility]) [facility] [address] [place] [address] 04/18/2020 12:00:00 AM EDT eCW1 ([facility]) Outpatient Attender: [facility] 04/17/2020 12:02:01 AM EDT [facility] Outpatient Attender: [facility] 04/01/2020 07:25:03 PM EDT [facility] Outpatient Attender: Mitchel Benton MD Main office - [place] 02/19/2020 11:15:00 AM EDT MED[facility] ([facility] [address] [facility] [address] 10/12/2019 12:00:00 AM EST eCW1 ([facility]) Immunizations Vaccine Date Status Description Data Source(s) influenza, recombinant, quadrIvalent,injectable, prese rvative free 10/14/2020 02:44:00 PM EST completed eCW1 ([facility]) Medications Medication Brand Name Start Date Product [...] 12:00:00 AM EDT ORAL active MEDENT ( [facility]) 100 mg 02/14/2020 12:00:00 AM [...] TABLET BY MOUTH EVERY DAY SOLD: 05/09/2020 [facility] 100 mg 11/12/2019 12:00:00 AM [...] TIMES A DAY NEEDED SOLD: 10/19/2019 Katheryn Peña gs 0.3 mg/0.3 mL 10/11/2019 12:00:00 AM EST [...] type / Coverage type Policy ID Covered constitution party ID Covered constitution party's relationship to arango Policy Arango Plan Information EMEDROBERT [id number] SP [id number] [place] HU[place]NA [id number] FA2 [id number] [place] P [id number] P [id number] Medicaid S [id number] S [id number] HU[place]NA [place] [id number] S [id number] MEDICAID M [id number] S [id number] [place] P [id number] P [id number] Medicaid S [id number] S [id number] [place] HU[place]NA [id number] FA2 [id number] MEDICAID [id number] SP [id number] Humana [id number] 3 [id number] [place]ID [place] [id number] DC [id number] [facility] [id number] 0 [id number] [place] P [id number] P [id number] ANSI-Commercial [id number] ANSI-Medicaid [id number] ANSI-Medicaid [id number] ANSI-Commercial [id number] ANSI-Medicaid [id number] ANSI-Commercial [id number] ANSI-Medicaid [id number] ANSI-Commercial [id number] ANSI-Commercial [id number] ANSI-Medicaid [id number] [place] HU[place] [id number] FA2 [id number] MEDICAID [id number] SP [id number] [facility] [id number] FA2 [id number] East ([facility]) Commercial [id number] Family Dependent [id number] ANSI-Medicaid [id number] ANSI-Commercial [id number] ANSI-Commercial [id number] ANSI-Medicaid [id number] ANSI-Medicaid [id number] ANSI-Commercial [id number] ANSI-Commercial [id number] ANSI-Medicaid [id number] ANSI-Medicaid [id number] ANSI-Commercial [id number] MEDICAID [id number] SP [id number] East (2018) Commercial [id number] Family Dependent [id number] ANSI-Medicaid [id number] ANSI-Commercial [id number] Medicaid [place] Medigap Part B [id number] Self DC0 [id number] East (2018) Health Maintenance Organization (HMO) [id number] Family Dependent [id number] Medicaid Medicaid [id number] Family Dependent DC0 5267P Medicaid Medicaid [id number] Family Dependent DC0 5267P Health Net () Commercial [id number] Family Dependent [id number] [place] (Humana) Commercial [id number] Family Dependent [id number] [place] Medig[place] Part [place] [id number] Self DC0 5267P [place] (2018) Health Maintenance Organization (HMO) [id number] Family Dependent [id number] [place] Medig[place] [id number] Self DC0 5267P [place] (2018) Health Maintenance Organization (HMO) [id number] Family Dependent [id number] [place] (2018) Commercial [id number] Family Dependent [id number] [place] Med[place] [id number] Self DC0 5267P [place] (2018) Health Maintenance Organization (HMO) [id number] Family Dependent [id number] [place] Med[place] [id number] Self DC0 5267P [place] (2018) Health Maintenance Organization (HMO) [id number] Family Dependent [id number] Medicaid Medicaid [id number] Family Dependent DC0 5267P Medicaid Medicaid [id number] Family Dependent DC0 5267P Health Net () Commercial [id number] Family Dependent [id number] [place] (Humana) Commercial [id number] Family Dependent [id number] Medicaid Medicaid [id number] Family Dependent DC0 5267P Medicaid Medicaid [id number] Family Dependent DC0 5267P Health Net () Commercial [id number] Family Dependent [id number] [place] (Humana) Commercial [id number] Family Dependent [id number] Medicaid Medicaid [id number] Family Dependent DC0 5267P Medicaid Medicaid [id number] Family Dependent DC0 5267P Health Net () Commercial [id number] Family Dependent [id number] [place] (Humana) Commercial [id number] Family Dependent [id number] East (2018) Commercial [id number] Family Dependent [id number] Medicaid Medicaid [id number] Family Dependent DC0 5267P Medicaid Medicaid [id number] Family Dependent DC0 5267P Health Net () Commercial [id number] Family Dependent [id number] [place] (Humana) Commercial [id number] Family Dependent [id number] Medicaid Medicaid [id number] Family Dependent DC0 5267P Medicaid Medicaid [id number] Family Dependent DC0 5267P Health Net () Commercial [id number] Family Dependent [id number] East (Humana) Commercial [id number] Family Dependent [id number] Medicaid Medicaid [id number] Family Dependent DC0 5267P Medicaid Medicaid [id number] Family Dependent DC0 5267P Health Net () Commercial [id number] Family Dependent [id number] East 2017 Commercial [id number] Family Dependent [id number] Medicaid Medicaid [id number] Family Dependent DC0 5267P Medicaid Medicaid [id number] Family Dependent DC0 5267P Health Net () Commercial [id number] Family Dependent [id number] East 2018 Commercial [id number] Family Dependent [id number] / Commercial [id number] Family Dependent [id number] [place] Medigap Part [place] [id number] Self DC0 5267P Health Net Federal Prime Health Maintenance Organization (HMO) [id number] Family Dependent [id number] [facility] [place] [id number] FA2 [id number] [facility] [place] O [id number] C [id number] [place] [id number] Self DC0 5267P Health Net Federal Prime Health Maintenance Organization (HMO) [id number] Family Dependent [id number] / Commercial [id number] Family Dependent [id number] / Commercial [id number] Family Dependent [id number] Medicaid Medicaid [id number] Family Dependent DC0 5267P Medicaid Medicaid [id number] Family Dependent DC0 5267P Health Net () Commercial [id number] Family Dependent [id number] / Commercial [id number] Family Dependent [id number] Medicaid Medicaid [id number] Family Dependent DC0 5267P Health Net () Commercial [id number] Family Dependent [id number] Medicaid Medicaid [id number] Family Dependent DC0 5267P Health Net () Commercial [id number] Family Dependent [id number] Medicaid Medicaid [id number] Family Dependent DC0 5267P Health Net () Commercial [id number] Family Dependent [id number] [place] Family Dependent [place] Health Net () Commercial Prime Family Depende nt Prime MEDICAID [id number] SP [id number] MEDICAID M [id number] Self [id number] [facility] U [id number] Child [id number] [facility] O [id number] P [id number] Problems, Conditions, and Diagnoses Code Display Name Description Problem Type Effective Dates Data Source(s) G43.019 [id number] Intractable migraine without aura and without status migrainosus Problem 10/13/2019 12:00:00 AM EST eCW1 ([facility]) G43.019 [id number] Intractable migraine without aura and without status migrainosus Problem 10/13/2019 12:00:00 AM EST eCW1 ([facility]) Surgeries/Procedures Procedure Description Date Indications Data Source(s) Immunization: Flublok Quadrivalent (18 years & older) 0.5mL IM (Influenza) 10/14/2020 12:00:00 AM EST eCW1 ([facility]) Results ID Date Data Source [id number] 08/22/2020 10:34:05 AM EDT [facility] Current Problems: RASH (ICD-782.1) (ICD1 0-R21)WELL CHILD EXAM (ICD-V20.2) (JYX08-B82.129)FH ANEMIA/BLOOD DISORDER/SICKLE CELL (ICD-V18.2) (ICD10- Z83.2)NEED PROPH VACC&INOCULAT AGNST OTH SPEC DISEASE (ICD-V05.8) (ICD10- Z23)WELL ADOLESCENT EXAM (ICD-V70.0) (YML85-S00.00)DERMATITIS ECZEMA (ICD-692.9) (RRL37-N22.9)ALLERGIC RHINITIS (ICD-477.9) (VVF56-V59.9)ASTHMA (ICD-493.90) (WDM98-X83.909)OBESITY (5TH DIGIT) (ICD-278.00) (FCY05-B39.9)Problem list reviewed during this update.Current Medications: * [...] 19, 31 sealed 03/17/11Debridement [facility] scaling okProbing not coveredAfter [...] rce(s) Supporting Document(s) ID Date Data Source [id number] 07/10/2020 02:23:57 PM EDT [facility] Current Problems: RASH (ICD-782.1) (ICD1 0-R21)WELL CHILD EXAM (ICD-V20.2) (LJB93-B29.129)FH ANEMIA/BLOOD DISORDER/SICKLE CELL (ICD-V18.2) (ICD10- Z83.2)NEED PROPH VACC&INOCULAT AGNST OTH SPEC DISEASE (ICD-V05.8) (ICD10- Z23)WELL ADOLESCENT EXAM (ICD-V70.0) (DBE94-C02.00)DERMATITIS ECZEMA (ICD-692.9) (HYV74-W01.9)ALLERGIC RHINITIS (ICD-477.9) (AUG96-D57.9)ASTHMA (ICD-493.90) (GUB84-A80.909)OBESITY (5TH DIGIT) (ICD-278.00) (HFK14-N74.9)Problem list reviewed during this update.Current Medications: * [...] 5 on Tooth Surface DO (Performed by Marie Angel RDH) Existing:Type - CDT Code - [...] 19, 31 sealed 03/17/11Debridement not covered under [facility] managed care scaling okProbing not coveredAfter perio maintenance has beenstarted all prophy's need to be billed code #4910 - 2 times per year Chart Notes:zoe (Jul 10 2020 2:51PM): [facility] with patient- No changes. No problems or concerns today. Adult prophy- handscaled, irish- mint prophy paste, floss, 4 BW'sOH-Patient brushes [...] PM): ; margarita (Jul 10 2020 3:21PM): [facility](-). CC: none. Reviewed Xrays. Exam: caries [...] rce(s) Supporting Document(s) ID Date Data Source [id number] 11/23/2019 09:00:00 AM EST [facility] Name Value Range Interpretation Code Description Data Aneta rce(s) Supporting Document(s) Colonoscopy [facility] OKHIZq5nWeANKhBmAAXdSubGZSqsKArnPHLlL4R5EJxaEb6KTVmtsfJlKPGoCf7+JIPwAN5ykn5bMILo gMy 2qBREaWnbbT5OsQCNgv68NNSWfKYiQQdBoEjOgLVWtXOJaBOVrBVJ7KxMbBlasDJ4iLMI3YQRuRAacKL XrNVCgLZMjByFlMJ6xJBhtNHztVc4ZRG9ya7YsIIXcUNYaTuoROKyiAMmtEQVbZNUsDYCeR707nmYlHo 9KfIPfRFv9VVMrDbM5TTYmAxJ2CVPxGa9aEcFix4Pe I0TpFUj7Z5uGBmoxD4XvDUonWS7tVKF1ONOuSy8XmFcsZYhfKVXQH7xsJyDnCJHuMLINIt8+Pj4+DWVu ED0vpg21RLUjs4LjSPy7X5V4cHIrH1FtK4KcECKqkIZKr3ldGwKbJOS5CWZjXgmkFI1VRIKkdUGdEJXk WFboWM5nuqCuqDF2DH4CnRcxTYUeXWCXTy7+Pi9QYX BrvxEzWaKvSHKoA54trTGkoVChPfddUWRLYX3+MYFoHJ3icd80UVCuz4XxUVl5U7gdwgq0rOMbXAV9OC whXuDkOWIqIL1lRX8DfGZ5wEHlBN6UxIPhWW1CvNWaDZ6EI5CkILB5F4KfdRTpjeZeI6ZhNSVfJJXan1 ZyMU3JY8ANEPTjENZcB9LroV0tB0EuK9DjS8Yfdxwi PQPLFj0RfHR6tUNtXJCkL3mqzRhjmZKhKZyeZ1GrrIFYPDZHc33zk36trsWdBA1+m9McCVWcCOy41ty9 ZVAcX/fnRXZVXmp7NGqqJNDzCiKXay3eQ2ejOrH8BPk5HlrclMS1Y0vBpNPQ2//levf0aui8zn/eD+/z 1KNOlr3+j6eh2cPl5wOc6GKLHOinKFQUlNFNKPIY31 rrcLi4ZDusiHthsRiE+ZJqDDGRsNJpe1uO4P3Do6XOwkMaMrF07+Ky8lnq3gld6dAb3+Lm/EttTC5de4 ZHQyfGwCDmfEv+lvP/KV58OExxtNzriuTYUlGBFqIYD+FiR6QAVFGjRfvROI1qLZfDUvHky0Prq8F3ZJ CPDXiFAAS+QgQiISEi/u31+vpQAPPOpm9V4NLVZ9lS [file] iG+Luis [file] ao5bbB7mDC9cwKjzxsBo/rufBob/ivette/2nmxP+269 1dyuaD7JsTNf5NiQI1uc2vbrRZaoXnQorBqyK2mhJH8zKWkrcE3nJCX84y3ThWq72z8/UcIh6VrOaILg MLuULlnJ1QQD9/TBit4uNSaALtlPm+q4B56EFY1kDha5XTu0XH3Wz+Ax0NFjNzY0ymAW4tp+cP8yqxzb prnJPcdxuICpnw9kte4il0YiyC3j5+yagjQBmAWCnY OJfJmuJX7gJIeJ2j7s456UgmeIBdEoTqawH+wrKnfx8gpgOqyIZOB66j0akfaXD6XJ3siNkSTOUH2+sv P0Nxrq5VUIOlxFVYx9K1bMrpXHXorALbfMJeUmYTraWHwAbKA604nEuFWbusFZ3ZqTzyIfMKHFiq7R3k BHGMrHsMZi/n2NiSRXQWd0rv6db4aNe6SLFUPCZn4J vVfKdsh39Fn/DzXUwykFZ5PSqVvHet0nYD5q83BSfD4TpxHW8eKi3IoIm4yNsZcpuhsPitMTL++awOBx WmF18okYS27lc8HXxDW33iKwBbYq1uxkunqNZn8EwOEGoMpwGvbvBFlmZhMl/PWSp6ZO8poyNIBcTYnK DDwCBCj/TJJnSJDjfNrjGerMd3bDqw+J2w2IZynFZ4 IgVikQjzWRDcUo7hni563D+[facility] HOME/rgU3RVaOJknq6ZgVoBk3DQe4o8yL5+ojkoAq0IOzZ1tuXgUyLj5WK [file] ziObw3q9f5oaAnpoT5doZCSP8waJ/José/VkBGKgN3LP5u7x1OBwZJxJ7DXUoxqnxWacvwyj8FBHzf/61 [file] G/TAMAYO+cLfOveDFTbKm2K45okz0U5z0ms4i/1euB40645tvpo2u/WfTmRQeZ/L70pSpg0tnin7Jbqses1T SBIkz5zaXJFfhsMJ2SlNDY/fBa9sO/8eTP1ng/28Wx 3td6QZ24ymhU2nmsgtXdXith/3x3HJ9h4n1cx2b37p62gFbnP0A0SMgs5nZ5DqWG3T1m40xCNvd8XtO+ S6zAwACBZQbFmaEOzYOO0sZV8l/eDPYMPSucKCehmiJjpKDjEL1ZAL1kp6RiBVWjNVFnz1GtSDi3T9hy yee4aEFeDP3+l5PdNYTtYWkbMkOxBhVcIRLsVmnuTA HlHSGgpLjpCF8hOnXVwhuRUCayegWjcKRnTO9XVF3zp9FrFVVmOGGdh8RrBCb4T2EteFSythQkKulfaA GDHDMbIVQiPWSsC2EcXTZ6U4sLEFf9FqxEFsHETyu4RiL5XJRsRaD9ZvFTIjR3TGA3IArjEsH+IDw2N0 SRIXOXJrQgUEubNRJ9OVO0JPOTUlA2ENiuXAJMKj3r A2Dlj4AlEBBxDSAzBC2nnyGpDBOlDa0HeDblADT6B2C1hDTsL0zCNZMxMmDyISI7WZYrZx7kgWKvJC2W XukaZ1EvTSUfVBXGJOGBWjm+LWVXFGBfJMQotlQQLA68IHZkQIS4nnSB4HuXR7XfB32wvFjOHANWKn39 OWgeimYwzJCpAY0JBeEnKF6gcv9CRwT4OUM3rKDdHs8SBZW7BKu0GCgfJTETKw== ID Date Data Source [id number] 09/28/2019 04:29:00 PM EST MEDENT ([facility] ) Name Value Range Interpretation Code Description Data Aneta rce(s) Supporting Document(s) Topiramate [Mass/volume] in Serum or Plasma 6.3 ug/mL 2.0-25.0 MEDENT ([facility] ) This test was developed and its performa nce characteristics determined by [facility]. It has not been cleared or approved by the Food and Drug Administration. Detection Limit = 1.0 Performed at: [facility] [id number] Meat Cooler: Dilia Fung MD, Phone: [phone] Performed at: [facility] [id number] Meat Cooler: Kamran Bryant MD, Phone: [phone] ID Date Data Source [id number] 09/28/2019 04:29:00 PM EST MEDENT ([facility], ) Name Value Range Interpretation Code Description Data Aneta rce(s) Supporting Document(s) Antinuclear Antibodies Direct Laboratory test result MEDENT ([facility], ) ID Date Data Source [id number] 09/28/2019 04:29:00 PM EST [facility] ([facility] ) Name Value Range Interpretation Code Description Data Aneta rce(s) Supporting Document(s) Calcidiol [Mass/volume] in Serum or Plasma 24.1 ng/mL 30.0-100.0 [facility] ([facility] ) Rheumatoid factor [Units/volume] in Serum or Plasma Laboratory test result MED[facility] ([facility] ) Erythrocyte sedimentation rate by 2H Westergren method 33 mm/hr 0-2 0 [facility] ([facility] ) ID Date Data Source [id number] 09/28/2019 04:29:00 PM EST [facility] ([facility] ) Name Value Range Interpretation Code Description Data Aneta rce(s) Supporting Document(s) Vitamin B12 Level 408 pg/mL [facility] ([facility], ) VITAMIN B12 NORMAL RANGE NORMAL 247 - 911 PG/ML INDETERMINATE 211 - 246 PG/ML DEFICIENT LESS THAN 211 PG/ML Folate 6.6 ng/mL MEDENT ([facility]) FOLATE NORMAL RANGE NORMAL GREATER THAN 5.4 NG/ML INDETERMINATE 3.4-5.4 NG/ML DEFICIENT LESS THAN 3.4 NG/ML ID Date Data Source [id number] 09/28/2019 04:29:00 PM EST [facility] ([facility]) Name Value Range Interpretation Code Description Data Aneta rce(s) Supporting Document(s) Blood Urea Nitrogen 9 mg/dL 7-18 [facility] ([facility], ) Creatinine For GFR 0.89 mg/dL 0.55-1.30 [facility] ([facility]) Glucose, Fasting 103 mg/dL 70-100 [facility] ([facility]) Potassium Serum 3.8 meq/L 3.5-5.1 [facility] ([facility]) Chloride Level 110 meq/L 98-107 [facility] ([facility], ) Sodium Level 141 meq/L 136-145 [facility] ([facility]) Carbon Dioxide Level 21 meq/L 21-32 [facility] ([facility]) Anion Gap 10 meq/L 8-16 [facility] ([facility]) Calcium Level 9.1 mg/dL 8.5-10.1 [facility] ([facility]) Ast/Sgot 35 U/L 7-37 [facility] ([facility]) Alt/SGPT 87 U/L 12-78 [facility] ([facility]) Alkaline Phosphatase 112 U/L 45-117 [facility] ([facility]) Total Protein 6.9 GM/DL 6.4-8.2 [facility] ([facility], ) Albumin 3.8 GM/DL 3.2-5.2 [facility] ([facility]) Bilirubin,Total 0.2 mg/dL 0.2-1.0 [facility] ([facility]) Albumin/Globulin Ratio 1.23 1.00-1.93 [facility] ([facility]) ID Date Data Source [id number] 09/28/2019 04:29:00 PM EST [facility] ([facility]) Name Value Range Interpretation Code Description Data Aneta e(s) Supporting Document(s) White Blood Count 6.6 10 4.0-10.0 [facility] ([facility]) Red Blood Count 4.47 10 4.00-5.40 [facility] ([facility]) Hematocrit 37.8 % 36.0-47.0 [facility] ([facility]) Hemoglobin 12.5 g/dL 12.0-15.5 [facility] ([facility]) Mean Corpuscular Volume 84.6 fl 80.0-96.0 M EDENT ([facility]) Mean Corpuscular Hemoglobin 28.0 pg 27.0-33.0 [facility] ([facility]) Platelet Count, Automated 311 10 150-450 [facility] ([facility]) Red Cell Distribution Width 12.0 % 11.5-14.5 [facility] ([facility]) Mean Corpuscular HGB Conc 33.1 g/dL 32.0-36.5 [facility] ([facility]) Wallace % 5.2 % 0.0-5.0 [facility] ([facility]) Lymph % 37.8 % 24.0-44.0 [facility] ([facility]) Neutrophils % 53.8 [facility] 36.0[facility].0 [facility] Immature Granulocyte % 0.2 % 0-3.0 [facility] ([facility]) Eos % 2.4 % 0.0-3.0 [facility] ([facility]) Baso % 0.6 % 0.0-1.0 [facility] ([facility]) Nucleated Red Blood Cell % 0.0 % 0-0 MED ENT ([facility]) Neutrophils # 3.6 10 1.5-8.5 [facility] ([facility]) Eos # 0.2 10 0.0-0.5 [facility] ([facility]) Lymph # 2.5 10 1.5-5.0 [facility] ([facility]) Wallace # 0.3 10 0.0-0.8 [facility] ([facility]) Baso # 0.0 10 0.0-0.2 [facility] ([facility]) Procedure Social History Code Duration Value Status Description Data Source(s ) Smoking 10/14/2020 12:00:00 AM EST Never Smoker completed Never S moker eCW1 ([facility]) Smoking 06/04/2020 12:00:00 AM EDT Patient has never smoked co mpleted Patient has never smoked [facility] ([facility]) Smoking 05/15/2020 12:00:00 AM EDT Never Smoker completed Never S moker eCW1 ([facility]) Smoking 05/15/2020 12:00:00 AM EDT Never Smoker completed Never S moker eCW1 ([facility]) Smoking 11/29/2019 12:00:00 AM EST Never Smoker completed Never S moker eCW1 ([facility]) Smoking 11/29/2019 12:00:00 AM EST Never Smoker completed Never S moker eCW1 ([facility]) Vital Signs ID Date Data Source UNK Name Value Range Interpretation Code Description Data Source(s) Diastolic blood pressure 74 mm[Hg] 74 mm[Hg] eCW1 ([facility]) Systolic blood pressure 120 mm[Hg] 120 mm[Hg] e CW1 ([facility]) Body temperature 98 [degF] 98 [degF] eCW1 ([facility]) Respiratory rate 18 /min 18 /min eCW1 ([facility]) Heart rate 89 /min 89 /min eCW1 ([facility]) Body mass index (BMI) [Ratio] 42.75 kg/m2 42.75 kg/m2 eCW1 ([facility]) Body height 67 [in_i] 67 [in_i] eCW1 ([facility]) Body weight 273 [lb_av] 273 [lb_av] eCW1 ([facility]) Body mass index (BMI) [Ratio] 42.5 kg/m2 [...] blood pressure 72 mm[Hg] 72 mm[Hg] eCW1 ([facility]) Systolic blood pressure 130 mm[Hg] 130 mm[Hg] e CW1 ([facility]) Body temperature 96.7 [degF] 96.7 [degF] eCW1 ( [facility]) Respiratory rate 18 /min 18 /min eCW1 ([facility]) Heart rate 90 /min 90 /min eCW1 ([facility]) Body mass index (BMI) [Ratio] 41.50 kg/m2 41.50 kg/m2 W1 ([facility]) Body height 67 [in_i] 67 [in_i] eCW1 ([facility]) Body weight 265 [lb_av] 265 [lb_av] eCW1 ([facility]) Diastolic blood pressure 70 mm[Hg] 70 mm[Hg] eCW1 ([facility]) Systolic blood pressure 120 mm[Hg] 120 mm[Hg] e CW1 ([facility]) Body temperature 97.6 [degF] 97.6 [degF] eCW1 ( [facility]) Respiratory rate 18 /min 18 /min eCW1 ([facility]) Heart rate 101 /min 101 /min eCW1 ([facility]) Body mass index (BMI) [Ratio] 41.03 kg/m2 41.03 kg/m2 eCW1 ([facility]) Body height 67 [in_us] 67 [in_us] eCW1 ([facility]) Body weight Measured 262 [lb_av] 262 [lb_av] eC W1 ([facility]) Body mass index (BMI) [Ratio] 42.3 kg/m2 [...]
[2020-11-24 23:05] LABS: BASO % 0.5 % (0.0-1.0); EOS # 0.1 10^3/uL (0.0-0.5); EOS % 0.8 % (0.0-3.0); HEMATOCRIT 40.6 % (36.0-47.0); HEMOGLOBIN 13.2 g/dl (12.0-15.5); LYMPH # 2.7 10^3/uL (1.5-5.0); LYMPH % 31.5 % (24.0-44.0); MEAN CORPUSCULAR HEMOGLOBIN 27.8 pg (27.0-33.0); MEAN CORPUSCULAR HGB CONC 32.5 g/dl (32.0-36.5); MEAN CORPUSCULAR VOLUME 85.5 fl (80.0-96.0); MONO # 0.5 10^3/uL (0.0-0.8); NEUTROPHILS # 5.2 10^3/uL (1.5-8.5); NEUTROPHILS % 61.1 % (36.0-66.0); PLATELET COUNT, AUTOMATED 303 10^3/uL (150-450); RED BLOOD COUNT 4.75 10^6/uL (4.00-5.40); WHITE BLOOD COUNT 8.5 10^3/uL (4.0-10.0)
--- NOTE | 2020-11-24 23:06 | REPVR ---
PROCEDURE INFORMATION: Exam: XR Chest, 1 View Exam date and time: 11/24/2020 10:29 PM Age: 20 years old Clinical indication: Chest pain; Type not specified TECHNIQUE: Imaging protocol: XR of the chest Views: 1 view. COMPARISON: CR Abdomen,Flat Upright,PA CHEST 06/27/2017 11:50 PM FINDINGS: Lungs: Unremarkable. No consolidation. Pleural spaces: Unremarkable. No pleural effusion. No pneumothorax. Heart/Mediastinum: Unremarkable. No cardiomegaly. Bones/joints: Unremarkable. Soft tissues: There are moderately generous overlying soft tissues. IMPRESSION: Negative chest without significant change from 06/27/2017. Electronically signed by: Ean Carlin On 11/24/2020 23:06:11 PM
[2020-11-24 23:36] VITALS: BP 140/92
--- NOTE | 2020-11-25 08:16 | ECGEPIP ---
[facility] - ED Test Date: 2020-11-24 Pat Name: ALANA PATEL Department: Room: - Gender: Female Continuous Improvement Manager: : 2000 Requested By: JOE Jiang PA-C Order Number: [id number] Reading MD: Jono Soria Measurements Intervals [place] Rate: 67 P: 40 IN: 156 QRS: 41 QRSD: 88 T: 35 QT: 431 QTc: 455 Interpretive Statements SINUS RHYTHM WITH SINUS ARRHYTHMIA NO PRIORS FOR COMPARISON Electronically Signed on 11-25-2020 8:15:51 EST by Jono Soria
== END 2020-11-24 23:37 | disposition home or self-care (01) ==
LOC: M ED 20:09
DX: J00 Acute nasopharyngitis [common cold] (principal); R42 Dizziness and giddiness; I10 Essential (primary) hypertension; M79.7 Fibromyalgia; G43.019 Migraine without aura, intractable, without status migrainosus; K21.9 Gastro-esophageal reflux disease without esophagitis; Z79.899 Other long term (current) drug therapy

== ENCOUNTER → 2022-01-25 | Outpatient (CLI) | payer OTHER, MEDICAID ==
[~2022-01-25] MED LIST changes: -CITA10TA5; +CITA10TA7; +FEXO-117; -FEXO180T58; +MONT10TA97; -MONT5TAB2
[2022-01-25 18:50] LABS: HEMATOCRIT 39.9 % (36.0-47.0); HEMOGLOBIN 12.9 g/dl (12.0-15.5); MEAN CORPUSCULAR HEMOGLOBIN 27.4 pg (27.0-33.0); MEAN CORPUSCULAR HGB CONC 32.3 g/dl (32.0-36.5); MEAN CORPUSCULAR VOLUME 84.7 fl (80.0-96.0); PLATELET COUNT, AUTOMATED 312 10^3/uL (150-450); RED BLOOD COUNT 4.71 10^6/uL (4.00-5.40); WHITE BLOOD COUNT 6.7 10^3/uL (4.0-10.0)
[2022-01-25 20:02] LABS: ALBUMIN 3.9 GM/DL (3.2-5.2); ALT/SGPT 126 U/L (12-78); BILIRUBIN,TOTAL 0.2 MG/DL (0.2-1.0); BLOOD UREA NITROGEN 11 MG/DL (7-18); CALCIUM LEVEL 9.5 MG/DL (8.5-10.1); CARBON DIOXIDE LEVEL 22 MEQ/L (21-32); CHLORIDE LEVEL 114 MEQ/L (98-107); CREATININE FOR GFR 1.04 MG/DL (0.55-1.30); GLOMERULAR FILTRATION RATE > 60.0 (>60); GLUCOSE, FASTING 103 MG/DL (70-100); SODIUM LEVEL 142 MEQ/L (136-145); TOTAL PROTEIN 7.6 GM/DL (6.4-8.2)
== END ==
LOC: M PLALAB 14:25
PROVIDERS: ATTEND Family Medicine
DX: R06.02 Shortness of breath (principal)

== ENCOUNTER → 2022-02-01 | Outpatient (CLI) | payer OTHER, MEDICAID | LOC: M WHC 06:49 | PROVIDERS: ATTEND Family Medicine | DX: R74.01 Elevation of levels of liver transaminase levels (principal); K76.0 Fatty (change of) liver, not elsewhere classified ==

== ENCOUNTER → 2022-02-08 | Outpatient (CLI) | payer OTHER, MEDICAID | LOC: M PLAIMG 13:00 → M PLALAB 13:00 | PROVIDERS: ATTEND Family Medicine | DX: R06.02 Shortness of breath (principal) ==

== ENCOUNTER → 2022-06-01 | Outpatient (CLI) | payer OTHER ==
[2022-06-01 13:18] LABS: BASO % 0.4 % (0.0-1.0); EOS # 0.2 10^3/uL (0.0-0.5); EOS % 2.8 % (0.0-3.0); HEMOGLOBIN 12.3 g/dl (12.0-15.5); LYMPH # 2.1 10^3/uL (1.5-5.0); LYMPH % 29.7 % (24.0-44.0); MEAN CORPUSCULAR HEMOGLOBIN 27.6 pg (27.0-33.0); MEAN CORPUSCULAR HGB CONC 32.4 g/dl (32.0-36.5); MEAN CORPUSCULAR VOLUME 85.4 fl (80.0-96.0); MONO # 0.4 10^3/uL (0.0-0.8); MONO % 5.4 % (2.0-8.0); NEUTROPHILS # 4.4 10^3/uL (1.5-8.5); NEUTROPHILS % 61.6 % (36.0-66.0); PLATELET COUNT, AUTOMATED 270 10^3/uL (150-450); RED BLOOD COUNT 4.45 10^6/uL (4.00-5.40); WHITE BLOOD COUNT 7.1 10^3/uL (4.0-10.0)
[2022-06-01 14:53] LABS: ALBUMIN 3.7 GM/DL (3.2-5.2); ALT/SGPT 72 U/L (12-78); BILIRUBIN,TOTAL 0.4 MG/DL (0.2-1.0); BLOOD UREA NITROGEN 12 MG/DL (7-18); CALCIUM LEVEL 9.1 MG/DL (8.5-10.1); CARBON DIOXIDE LEVEL 18 MEQ/L (21-32); CHLORIDE LEVEL 114 MEQ/L (98-107); CREATININE FOR GFR 0.77 MG/DL (0.55-1.30); FOLLICLE STIMULATING HORMONE 2.7 mIU/mL; FREE T4 0.84 NG/DL (0.76-1.46); GLOMERULAR FILTRATION RATE > 60.0 (>60); GLUCOSE, FASTING 97 MG/DL (70-100); LUTEINIZING HORMONE 2.7 mIU/mL; POTASSIUM SERUM 4.4 MEQ/L (3.5-5.1); PROGESTERONE 8.64 NG/ML; SODIUM LEVEL 141 MEQ/L (136-145); TESTOSTERONE 17 NG/DL (14-76); TOTAL PROTEIN 7.2 GM/DL (6.4-8.2)
== END ==
LOC: M PLALAB 09:25
PROVIDERS: ATTEND Physician Assistant
DX: N91.2 Amenorrhea, unspecified (principal)

== ENCOUNTER → 2022-06-30 | Outpatient (CLI) | payer OTHER ==
[~2022-06-30] MED LIST changes: -MAXA10TA14 PO; +RIZA10TA64 PO
== END ==
LOC: M WHC 06:52
PROVIDERS: ATTEND Physician Assistant
DX: N91.2 Amenorrhea, unspecified (principal)

== ENCOUNTER → 2022-10-26 | Outpatient (CLI) | payer OTHER ==
[2022-10-26 13:42] LABS: HEMATOCRIT 38.9 % (36.0-47.0); HEMOGLOBIN 12.5 g/dl (12.0-15.5); MEAN CORPUSCULAR HEMOGLOBIN 28.2 pg (27.0-33.0); MEAN CORPUSCULAR HGB CONC 32.1 g/dl (32.0-36.5); MEAN CORPUSCULAR VOLUME 87.6 fl (80.0-96.0); PLATELET COUNT, AUTOMATED 273 10^3/uL (150-450); RED BLOOD COUNT 4.44 10^6/uL (4.00-5.40); WHITE BLOOD COUNT 5.9 10^3/uL (4.0-10.0)
[2022-10-26 14:17] LABS: FREE T3 2.9 PG/ML (2.3-4.2)
[2022-10-26 14:20] LABS: FREE T4 0.95 NG/DL (0.89-1.76)
[2022-10-26 14:21] LABS: THYROID STIMULATING HORMONE 2.814 uIU/ML (0.55-4.78)
== END ==
LOC: M PLALAB 10:02
PROVIDERS: ATTEND Advanced Practice Midwife
DX: N92.0 Excessive and frequent menstruation with regular cycle (principal)

== ENCOUNTER → 2023-05-06 | Outpatient (CLI) | payer OTHER, SELFPAY ==
[~2023-05-06] MED LIST changes: -AMIT25TA17 PO; +AMIT25TA19 PO; +MONT-5 PO; -SING10TA32 PO
[2023-05-06 10:58] LABS: BASO % 0.5 % (0.0-1.0); EOS # 0.1 10^3/uL (0.0-0.5); EOS % 2.2 % (0.0-3.0); HEMATOCRIT 38.9 % (36.0-47.0); HEMOGLOBIN 12.6 g/dl (12.0-15.5); LYMPH # 2.2 10^3/uL (1.5-5.0); LYMPH % 34.4 % (24.0-44.0); MEAN CORPUSCULAR HEMOGLOBIN 27.9 pg (27.0-33.0); MEAN CORPUSCULAR HGB CONC 32.4 g/dl (32.0-36.5); MEAN CORPUSCULAR VOLUME 86.3 fl (80.0-96.0); MONO # 0.4 10^3/uL (0.0-0.8); MONO % 6.3 % (2.0-8.0); NEUTROPHILS # 3.7 10^3/uL (1.5-8.5); NEUTROPHILS % 56.4 % (36.0-66.0); PLATELET COUNT, AUTOMATED 262 10^3/uL (150-450); RED BLOOD COUNT 4.51 10^6/uL (4.00-5.40); WHITE BLOOD COUNT 6.5 10^3/uL (4.0-10.0)
[2023-05-06 11:27] LABS: LIPASE 34 U/L (12-53)
[2023-05-06 11:29] LABS: ALBUMIN 3.8 G/DL (3.2-5.2); ALKALINE PHOSPHATASE 108 U/L (46-116); ALT/SGPT 84 U/L (7.0-40); AST/SGOT 38 U/L (<34); BILIRUBIN,TOTAL 0.4 MG/DL (0.3-1.2); BLOOD UREA NITROGEN 14 MG/DL (9-23); CALCIUM LEVEL 9.2 MG/DL (8.5-10.1); CARBON DIOXIDE LEVEL 16 MMOL/L (20-31); CHLORIDE LEVEL 112 MMOL/L (98-107); CREATININE FOR GFR 0.76 MG/DL (0.55-1.30); FERRITIN 50.9 NG/ML (7.3-270.7); FOLLICLE STIMULATING HORMONE 3.6 mIU/ML; GLOMERULAR FILTRATION RATE > 60.0 (>60); GLUCOSE, FASTING 98 MG/DL (60-100); LUTEINIZING HORMONE 2.1 mIU/ML; POTASSIUM SERUM 3.8 MMOL/L (3.5-5.1); PROLACTIN 11.59 NG/ML; SODIUM LEVEL 139 MMOL/L (136-145); TOTAL PROTEIN 7.1 G/DL (5.7-8.2)
[2023-05-06 11:49] LABS: ERYTHROCYTE SEDIMENTATION RATE 47 mm/hr (0-20)
[2023-05-09 17:07] LABS: 17 HYDROXY PROGESTERONE 24 ng/dL (.); H PYLORI SERUM QUANT IgG ABY 2.33 (0.00-0.79); TESTOSTERONE FREE (DIRECT) 0.4 pg/mL (0.0-4.2)
== END ==
LOC: M PLAIMG 08:06
PROVIDERS: ATTEND Physician Assistant
DX: R10.12 Left upper quadrant pain (principal)

== ENCOUNTER → 2023-07-01 | Outpatient (CLI) | payer MEDICAID, OTHER | LOC: M WUC 08:27 | PROVIDERS: ATTEND Nurse Practitioner Family | DX: M79.671 Pain in right foot (principal) ==

== ENCOUNTER → 2023-11-17 | Outpatient (CLI) | payer MEDICAID, OTHER ==
[2023-11-17 16:51] LABS: HEMOGLOBIN A1c 5.1 % (4.0-6.0)
== END ==
LOC: M PLALAB 12:28
PROVIDERS: ATTEND Nurse Practitioner Family
DX: N92.6 Irregular menstruation, unspecified (principal)

== ENCOUNTER → 2023-11-17 | Outpatient (CLI) | payer MEDICAID, OTHER ==
[2023-11-17 16:36] LABS: ALBUMIN 3.9 G/DL (3.2-5.2); ALKALINE PHOSPHATASE 106 U/L (46-116); ALT/SGPT 73 U/L (7.0-40); AST/SGOT 34 U/L (<34); BILIRUBIN,TOTAL 0.4 MG/DL (0.3-1.2); BLOOD UREA NITROGEN 10 MG/DL (9-23); CALCIUM LEVEL 9.4 MG/DL (8.5-10.1); CARBON DIOXIDE LEVEL 18 MMOL/L (20-31); CHLORIDE LEVEL 113 MMOL/L (98-107); GLOMERULAR FILTRATION RATE > 60.0 (>60); GLUCOSE, FASTING 85 MG/DL (60-100); POTASSIUM SERUM 4.1 MMOL/L (3.5-5.1); SODIUM LEVEL 136 MMOL/L (136-145); TOTAL PROTEIN 7.4 G/DL (5.7-8.2)
[2023-11-17 16:38] LABS: FREE T4 0.97 NG/DL (0.89-1.76)
== END ==
LOC: M PLALAB 12:31
PROVIDERS: ATTEND Physician Assistant
DX: R10.12 Left upper quadrant pain (principal)

== ENCOUNTER → 2024-08-22 | Outpatient (CLI) | payer OTHER, MEDICAID ==
[~2024-08-22] MED LIST changes: +GABA-1172 PO; -GABA-282 PO
== END ==
LOC: M WUC 13:03
PROVIDERS: ATTEND Nurse Practitioner Family
DX: M79.671 Pain in right foot (principal)

== ENCOUNTER → 2024-10-15 | Outpatient (CLI) | payer MEDICAID, OTHER ==
[~2024-10-15] MED LIST changes: -FEXO-117; +FEXO-193
[2024-10-15 10:29] LABS: HEMATOCRIT 39.5 % (36.0-47.0); HEMOGLOBIN 13.1 g/dl (12.0-15.5); MEAN CORPUSCULAR HEMOGLOBIN 28.7 pg (27.0-33.0); MEAN CORPUSCULAR HGB CONC 33.2 g/dl (32.0-36.5); MEAN CORPUSCULAR VOLUME 86.6 fl (80.0-96.0); PLATELET COUNT, AUTOMATED 278 10^3/uL (150-450); RED BLOOD COUNT 4.56 10^6/uL (4.00-5.40); WHITE BLOOD COUNT 6.4 10^3/uL (4.0-10.0)
[2024-10-15 11:03] LABS: ALBUMIN 3.5 G/DL (3.2-5.2); ALKALINE PHOSPHATASE 112 U/L (35-104); ALT/SGPT 49 U/L (7.0-40); AST/SGOT 15 U/L (<34); BILIRUBIN,TOTAL 0.2 MG/DL (0.3-1.2); BLOOD UREA NITROGEN 16 MG/DL (9-23); CALCIUM LEVEL 9.4 MG/DL (8.5-10.1); CARBON DIOXIDE LEVEL 19 MMOL/L (20-31); CHLORIDE LEVEL 111 MMOL/L (98-107); CREATININE FOR GFR 0.74 MG/DL (0.55-1.30); GLOMERULAR FILTRATION RATE > 60.0 (>60); GLUCOSE, FASTING 95 MG/DL (60-100); MAGNESIUM LEVEL 1.8 MG/DL (1.8-2.4); POTASSIUM SERUM 4.4 MMOL/L (3.5-5.1); SODIUM LEVEL 141 MMOL/L (136-145); TOTAL PROTEIN 7.6 G/DL (5.7-8.2)
== END ==
LOC: M PLALAB 08:52
PROVIDERS: ATTEND Physician Assistant Medical
DX: R55 Syncope and collapse (principal)

== ENCOUNTER → 2025-08-01 | Outpatient (CLI) | payer OTHER ==
[~2025-08-01] MED LIST changes: +ALBU8.5H; +CITA20TA7; +ONDA-282 PO; +PANT20TA6; +TOPI-257; -TOPI100T9
[2025-08-01 16:50] LABS: PLATELET COUNT, AUTOMATED 299 10^3/uL (150-450)
[2025-08-01 17:01] LABS: ESTIMATED AVERAGE GLUCOSE 105.0 MG/DL (60-110)
[2025-08-01 17:20] LABS: IRON (FE) 60 UG/DL (50-170); PERCENT SATURATION 19.3 % (13.2-45.0); VITAMIN B12 LEVEL 379 PG/ML (211-911)
[2025-08-01 17:21] LABS: ALT/SGPT 74 U/L (7.0-40); AST/SGOT 41 U/L (<34); CALCIUM LEVEL 9.1 MG/DL (8.5-10.1); CARBON DIOXIDE LEVEL 20 MMOL/L (20-31); CHLORIDE LEVEL 108 MMOL/L (98-107); CHOLESTEROL LEVEL 206 MG/DL (<200); CHOLESTEROL RISK RATIO 4.42 (<5); CREATININE FOR GFR 0.82 MG/DL (0.55-1.30); GLOMERULAR FILTRATION RATE > 90.0 (>60); LDL CHOLESTEROL 133.8 MG/DL (<100); MAGNESIUM LEVEL 1.8 MG/DL (1.8-2.4); NON-HDL-C 159.4 MG/DL; POTASSIUM SERUM 4.1 MMOL/L (3.5-5.1); SODIUM LEVEL 142 MMOL/L (136-145); TRIGLYCERIDES LEVEL 128 MG/DL (<150)
[2025-08-01 17:22] LABS: FREE T4 1.12 NG/DL (0.89-1.76)
== END ==
LOC: M PLALAB 14:25
PROVIDERS: ATTEND Nurse Practitioner Family
DX: R07.89 Other chest pain (principal)

== ENCOUNTER 2025-08-08 08:23 | Emergency (ER) | payer OTHER ==
[~2025-08-08] VITALS: Ht 165.1 cm; Wt 122.1 kg
[~2025-08-08 08:23] MED LIST changes: -ALBU8.5H; -CITA20TA7; -ONDA-282 PO; -PANT20TA6
[2025-08-08] MEDS ORDERED: PANT20TA6 (08:39)
[2025-08-08] MEDS ORDERED: ALBU8.5H (08:39)
[2025-08-08] MEDS ORDERED: CITA20TA7 (08:39)
[2025-08-08] MEDS ORDERED: NITROGLYCERIN 0.4 MG SUBL TABLET SL PRN (09:55)
[2025-08-08] MEDS: ASPIRIN 81 MG CHEWABLE TABLET PO ONE (10:36)
[2025-08-08] MEDS: ONDANSETRON 4MG 2ML VIAL IV ONE (10:37)
[2025-08-08] MEDS: ACETAMINOPHEN 500 MG TAB PO ONE (10:37)
[2025-08-08] MEDS: NS (Normal Saline) 0.9% 1,000 ML IV ONE (10:38)
[2025-08-08 11:33] LABS: BASO # 0.0 10^3/uL (0.0-0.2); BASO % 0.5 % (0.0-1.0); EOS # 0.2 10^3/uL (0.0-0.5); EOS % 2.5 % (0.0-3.0); LYMPH # 2.0 10^3/uL (1.5-5.0); LYMPH % 32.2 % (24.0-44.0); MONO # 0.3 10^3/uL (0.0-0.8); MONO % 4.6 % (2.0-8.0); NEUTROPHILS # 3.7 10^3/uL (1.5-8.5); NEUTROPHILS % 60.0 % (36.0-66.0); PLATELET COUNT, AUTOMATED 321 10^3/uL (150-450)
[2025-08-08 11:38] LABS: ERYTHROCYTE SEDIMENTATION RATE 42 mm/hr (0-20)
[2025-08-08 12:02] LABS: CK-MB VALUE MASS 1.4 NG/ML (<3.6)
[2025-08-08 12:06] LABS: C REACTIVE PROTEIN QUANTITATIV 0.51 MG/DL (<1.0); CPK CREATINE PHOSPHOKINASE 123 U/L (34-145); MB/CK RELATIVE INDEX 1.13 (< OR =4)
[2025-08-08 12:07] LABS: ALT/SGPT 74 U/L (7.0-40); AST/SGOT 40 U/L (<34); CALCIUM LEVEL 9.3 MG/DL (8.5-10.1); CARBON DIOXIDE LEVEL 21 MMOL/L (20-31); CHLORIDE LEVEL 108 MMOL/L (98-107); CREATININE FOR GFR 0.75 MG/DL (0.55-1.30); FREE T4 1.08 NG/DL (0.89-1.76); GLOMERULAR FILTRATION RATE > 90.0 (>60); POTASSIUM SERUM 4.0 MMOL/L (3.5-5.1); SODIUM LEVEL 143 MMOL/L (136-145)
[2025-08-08 12:25] LABS: HCG, SERUM QUALITATIVE NEGATIVE (NEGATIVE)
[2025-08-08 13:32] LABS: CK-MB VALUE MASS < 1.0 NG/ML (<3.6)
[2025-08-08 13:33] LABS: CPK CREATINE PHOSPHOKINASE 99 U/L (34-145)
[2025-08-08] MEDS ORDERED: ISOVUE-370 76% 100 ML VIAL As Ordered ONE (14:05)
[2025-08-08 15:06] VITALS: BP 115/71
[2025-08-08 15:08] VITALS: TEMP 97.5; O2SAT 99
[2025-08-08] MEDS ORDERED: ONDA-282 PO (15:08)
== END 2025-08-08 15:24 | disposition home or self-care (01) ==
LOC: M ED 08:23
DX: K29.00 Acute gastritis without bleeding (principal); R11.2 Nausea with vomiting, unspecified; R91.1 Solitary pulmonary nodule; R74.01 Elevation of levels of liver transaminase levels; R00.1 Bradycardia, unspecified; K21.9 Gastro-esophageal reflux disease without esophagitis; J45.909 Unspecified asthma, uncomplicated; R51.9 Headache, unspecified; Z79.52 Long term (current) use of systemic steroids; Z79.899 Other long term (current) drug therapy
CPT/HCPCS: 71045; 71275; 80047; 80048; 80076; 82550; 82553; 83690; 83880; 84439; 84443; 84484; 84703; 85025; 85379; 85652; 86140; 93005; 93041; 94760; 96374; 99285; J2405; Q9967

== ENCOUNTER 2025-08-27 09:16 | Emergency (ER) | payer OTHER ==
[~2025-08-27] VITALS: Ht 165.1 cm; Wt 122.0 kg
[~2025-08-27 09:16] MED LIST changes: -BUPR150T12 PO; -HOLTER MONITOR XX
[2025-08-27 10:26] LABS: BASO # 0.0 10^3/uL (0.0-0.2); BASO % 0.3 % (0.0-1.0); EOS # 0.2 10^3/uL (0.0-0.5); EOS % 2.5 % (0.0-3.0); LYMPH # 1.8 10^3/uL (1.5-5.0); LYMPH % 25.8 % (24.0-44.0); MONO # 0.5 10^3/uL (0.0-0.8); MONO % 7.8 % (2.0-8.0); NEUTROPHILS # 4.3 10^3/uL (1.5-8.5); NEUTROPHILS % 63.3 % (36.0-66.0); PLATELET COUNT, AUTOMATED 275 10^3/uL (150-450)
[2025-08-27 10:38] LABS: CK-MB VALUE MASS 1.5 NG/ML (<3.6)
[2025-08-27 10:41] LABS: ALT/SGPT 65 U/L (7.0-40); AST/SGOT 32 U/L (<34); CALCIUM LEVEL 9.4 MG/DL (8.5-10.1); CARBON DIOXIDE LEVEL 20 MMOL/L (20-31); CHLORIDE LEVEL 110 MMOL/L (98-107); CPK CREATINE PHOSPHOKINASE 146 U/L (34-145); CREATININE FOR GFR 0.81 MG/DL (0.55-1.30); GLOMERULAR FILTRATION RATE > 90.0 (>60); MAGNESIUM LEVEL 1.8 MG/DL (1.8-2.4); MB/CK RELATIVE INDEX 1.02 (< OR =4); POTASSIUM SERUM 4.3 MMOL/L (3.5-5.1); SODIUM LEVEL 141 MMOL/L (136-145)
[2025-08-27 10:43] LABS: FREE T4 1.10 NG/DL (0.89-1.76)
[2025-08-27] MEDS: NS (Normal Saline) 0.9% 1,000 ML IV ONE (10:48)
[2025-08-27 10:49] LABS: HCG, SERUM QUALITATIVE NEGATIVE (NEGATIVE)
[2025-08-27] MEDS ORDERED: BUPR150T12 PO (11:20)
[2025-08-27] MEDS ORDERED: HOME MED LIST COMPLETE! XX SCH (11:25)
[2025-08-27] MEDS ORDERED: ISOVUE-370 76% 100 ML VIAL As Ordered ONE (12:32)
[2025-08-27] MEDS ORDERED: HOLTER MONITOR XX (13:44)
[2025-08-27 13:47] VITALS: BP 107/56
[2025-08-27 13:58] VITALS: TEMP 98.8; O2SAT 98
== END 2025-08-27 14:00 | disposition home or self-care (01) ==
LOC: M ED 09:16
DX: R00.2 Palpitations (principal); Z79.52 Long term (current) use of systemic steroids; Z79.899 Other long term (current) drug therapy
CPT/HCPCS: 71275; 80053; 82550; 82553; 83735; 84439; 84443; 84484; 84703; 85025; 93005; 96360; 96361; 99285; Q9967

== ENCOUNTER → 2025-08-27 | Outpatient (CLI) | payer OTHER ==
[~2025-08-27] MED LIST changes: +ALBU8.5H INH; +BUPR150T12 PO; +CITA20TA7; +HOLTER MONITOR XX; +ONDA-282 PO; +PANT20TA6 PO
== END ==
LOC: M EKG 14:19
DX: R00.2 Palpitations (principal)

== ENCOUNTER → 2025-09-03 | Outpatient (CLI) | payer OTHER ==
[~2025-09-03] MED LIST changes: +BUPR150T12 PO; +HOLTER MONITOR XX
== END ==
LOC: M RAD 08:02
PROVIDERS: ATTEND Nurse Practitioner Family
DX: R79.89 Other specified abnormal findings of blood chemistry (principal); K76.0 Fatty (change of) liver, not elsewhere classified